=== PATIENT | female | born 1970 | race Caucasian/White ===

== ENCOUNTER 2021-09-02 07:33 | Outpatient (REF) | payer OTHER, SELFPAY ==
[2021-09-02 07:52] LABS: MANUAL DIFF FLAG NO
[2021-09-02 09:37] LABS: Basophils Percent Auto 0.5 % (0-2); Eosinophils Absolute Auto 0.1 X10*3/uL (0.0-0.4); Eosinophils Percent Auto 1.6 % (0-4); Hematocrit 39.2 % (37.0-47.0); Hemoglobin 12.9 g/dl (12.0-16.0); Imm Gran Abs Auto 0.01 X10*3/uL (0.00-0.03); Imm Gran Pct Auto 0.2 % (0.0-0.4); Lymphocytes Absolute Auto 1.5 X10*3/uL (1.2-4.9); Lymphocytes Percent Auto 34.7 % (20-40); Mean Corpuscular HGB Conc 32.9 g/dl (31.0-35.0); Mean Corpuscular Hemoglobin 30.1 pg (27.0-33.0); Mean Corpuscular Volume 91.6 fL (80.0-98.0); Mean Platelet Volume 11.1 fL (9.4-12.3); Monocytes Absolute Auto 0.4 X10*3/uL (0.1-1.2); Monocytes Percent Auto 10.3 % (2-11); Neutrophils Absolute Auto 2.2 x10*3/uL (2.0-8.3); Neutrophils Percent Auto 52.7 % (45-73); Platelet Count 249 X10*3/uL (160-400); Red Blood Count 4.28 X10*6/uL (4.20-5.50); Red Cell Distribution Width 12.5 % (11.0-16.0); White Blood Count 4.3 X10*3/uL (4.8-10.8)
[2021-09-02 10:08] LABS: Alanine Aminotransferase 27 U/L (0-31); Albumin Level 4.1 g/dL (3.5-5.0); Alkaline Phosphatase 107 U/L (39-117); Anion Gap 11 (12-20); Aspartate Amino Transferase 22 U/L (5-31); Bilirubin Total 0.4 mg/dL (0.0-1.0); Blood Urea Nitrogen 13 mg/dL (9-16); Calcium 8.9 mg/dL (8.4-10.2); Carbon Dioxide 29 mmol/L (22-29); Chloride 106 mmol/L (96-108); Cholesterol 189 mg/dL; Estimated Glomerular Filt Rate > 60; Glucose Fasting 96 mg/dL (60-99); HDL Cholesterol 48 mg/dL; LDL Cholesterol Calculated 129 mg/dl; Potassium 4.3 mmol/L (3.3-5.1); Sodium 142 mmol/L (135-145); Total Protein 7.3 g/dL (6.5-8.0); Triglycerides 62 mg/dL
[2021-09-02 10:13] LABS: TSH reflex Free T4 1.22 uIU/mL (0.32-4.0); Vitamin D 25-OH Total 41.1 ng/mL (>30)
[2021-09-02 11:17] LABS: Appearance Urine CLEAR; Color Urine YELLOW; Glucose Urine UA NEG (NEG); Leukocyte Esterase Urine NEG (NEG); Nitrite Urine NEG (NEG); Urine Blood NEG (NEG); Urine Ketones NEG (NEG); Urine Protein NEG (NEG-TRACE)
== END 2021-09-02 07:34 | disposition home or self-care (01) ==
LOC: HO.LAB 07:33
PROVIDERS: PCP Internal Medicine; Visit Provider Internal Medicine
DX: Z00.00 Encounter for general adult medical examination without abnormal findings (principal); E78.00 Pure hypercholesterolemia, unspecified; E55.9 Vitamin D deficiency, unspecified; I10 Essential (primary) hypertension
CPT/HCPCS: 80053; 80061; 81003; 82306; 84443; 85025; U0003; U0005

== ENCOUNTER → 2021-12-12 10:32 | Outpatient (BNVA) | payer OTHER, SELFPAY | PROVIDERS: PCP Internal Medicine; Referring Provider Internal Medicine; Visit Provider Nurse Practitioner Family | DX: Z12.11 Encounter for screening for malignant neoplasm of colon (principal) | CPT/HCPCS: 99212 ==

== ENCOUNTER 2022-01-29 09:47 | Day surgery (SDC) | payer OTHER, SELFPAY ==
[2022-01-24 09:16] VITALS: BMI 28.3
--- NOTE | 2022-01-26 09:37 | HO.ANESPROP2 ---
Documented by User: Manuela Vega NP 01/26/22 09:38 HPI - Anesthesia Eval Consult details Narrative: 51yo F for Colonoscopy PMFSH Active Problems Active Problems: All Active Problems (Updated 09/01/21 @ 19:14 by Moises Peralta MD) Loss of sense of smell (Acute) Colon cancer screening (Acute) Overweight (BMI 25.0-29.9) (Acute) Constipation (Acute) Elevated LFTs (Acute) Vitamin D deficiency (Acute) Benign essential hypertension (Acute) Annual physical exam (Acute) Past Medical History Medical History Benign essential hypertension Constipation Elevated LFTs Mucous cyst of tonsil Overweight (BMI 25.0-29.9) Vitamin D deficiency Family History Family History Father Heart disease Mother Diabetes Maternal Aunt Breast cancer Other Mental health problem Substance abuse Surgical History Surgical History No pertinent past surgical history Social History Social History Housing: House Alcohol intake: never Patient Tobacco Use Status: Never used Tobacco Second Hand Smoke Exposure: Yes Are you DNR?: No Advance Directives: No Advance Directives Information Provided: Yes service: No Current occupational status: employed Meds Allergies Allergy/AdvReac Type Severity Reaction Status Date / Time aspirin [ASPIRIN] Allergy Severe VOMITING, Verified 12/12/21 10:42 hives ibuprofen [From MOTRIN] Allergy Unknown UNKNOWN, Verified 12/12/21 10:42 hives Home Medications Medication Instructions Recorded Confirmed Last Taken Type ascorbate calcium (vitamin C) 500 1 g PO Q6H 12/12/21 Unknown History mg tablet collagen (bovine) 100 % topical 1 appl TOPICAL DAILY 12/12/21 Unknown History powder vitamin B complex (B 1 tab PO DAILY 12/12/21 Unknown History Complex-Vitamin B12) Exam Exam Date and Time: January 26, 2022 0937 Height,Weight and Vital Signs: Height 5 ft 2 in Weight 70.307 kg Pertinent Lab Results Pertinent Lab Results: Laboratory Tests 09/02/21 09/02/21 07:51 07:51 WBC 4.3 L Hgb 12.9 Hct 39.2 Plt Count 249 Sodium 142 Potassium 4.3 Chloride 106 Carbon Dioxide 29 BUN 13 Creatinine 0.90 Assessment and Plan Assessment Anesthesia Assessment: Chart Reviewed Documented by User: Connie Tilley MD 01/29/22 10:47 PMFSH Past Medical History Medical History Benign essential hypertension Constipation Elevated LFTs Mucous cyst of tonsil Overweight (BMI 25.0-29.9) Vitamin D deficiency Family History Family History Father Heart disease Mother Diabetes Maternal Aunt Breast cancer Other Mental health problem Substance abuse Family history of problems with anesthesia: No Surgical History Surgical History No pertinent past surgical history History of Problems with Anesthesia: No Social History Social History Housing: House Alcohol intake: never Patient Tobacco Use Status: Never used Tobacco Second Hand Smoke Exposure: Yes Are you DNR?: No Advance Directives: No Advance Directives Information Provided: Yes service: No Current occupational status: employed Meds Allergies Allergy/AdvReac Type Severity Reaction Status Date / Time aspirin [ASPIRIN] Allergy Severe VOMITING, Verified 12/12/21 10:42 hives ibuprofen [From MOTRIN] Allergy Unknown UNKNOWN, Verified 12/12/21 10:42 hives Home Medications Medication Instructions Recorded Confirmed Last Taken Type ascorbate calcium (vitamin C) 500 1 g PO Q6H 12/12/21 Unknown History mg tablet collagen (bovine) 100 % topical 1 appl TOPICAL DAILY 12/12/21 Unknown History powder vitamin B complex (B 1 tab PO DAILY 12/12/21 Unknown History Complex-Vitamin B12) Exam Airway Mallampati Class: II TM Dist: >3cm Neck ROM: Full Heart: rrr Lungs: cta Assessment and Plan Assessment Anesthesia Assessment: Anesthesia Plan Discussed and Chart Reviewed Final Anesthetic Review Family History of Problems with Anesthesia: No History of Problems with Anesthesia: No NPO: Yes ASA Class: II Final Preanesthetic Review: No Changes in Pt Med Stat, Meds/Allgs Chart Reviewed and Consent Obtained/Reviewed Patient Risk: Intermediate Procedure Risk: Intermediate Anesthetic Plan Anesthetic Plan: MAC: Disposition: Standard PACU
[2022-01-29 10:19] VITALS: BMI 28.3
[2022-01-29 10:36] VITALS: BP 161/84; PULSE 60; RESP 18; TEMP 36.4; O2SAT 98
[2022-01-29] MEDS: Lactated Ringers 1,000 ML 100 ML IVCONT (10:45)
--- NOTE | 2022-01-29 10:45 | MHC.SHP ---
Pre-Procedural Eval Section A Date of Service: 01/29/22 The patient is an INPATIENT: No The History & Physical has been completed within 30 days and I have reviewed it.: No Section B Chief Complaint: screening Details of Present Illness: Colon cancer screening Relevant Family History (Specify if Yes): No Relevant Social History: None Present Medications: see Short Stay Collaborative assessment Medical History: Significant History (Benign essential hypertension Constipation Elevated LFTs Mucous cyst of tonsil Overweight (BMI 25.0-29.9) Vitamin D deficiency) History of Previous Operations: No relevant previous surgery Allergies: Allergies Allergy/AdvReac Type Severity Reaction Status Date / Time aspirin [ASPIRIN] Allergy Severe VOMITING, Verified 12/12/21 10:42 hives ibuprofen [From MOTRIN] Allergy Unknown UNKNOWN, Verified 12/12/21 10:42 hives Review of Systems Sugical H&P ROS: Negative: Constitution, Cardiovascular, Respiratory and Gastrointestinal Exam Surgical H&P Exam: Normal: Heart, Normal: Lungs, Normal: Extremities and Normal: Abdomen Plan Diagnosis/Plan: Unchanged I have reviewed the history and physical and performed a pertinent physical examination on my patient. No changes have occurred unless specified.
--- NOTE | 2022-01-29 10:46 | P.OP_ITS ---
Operative Note Operative Note Date of Service: 01/29/22 Narrative: Pre-op diagnosis: Colon cancer screening Post-op diagnosis:?other (Colon polyp, diverticulosis) Procedure: COLONOSCOPY TILL CECUM WITH SNARE POLYPECTOMY Consent: Indications for the procedure and potential complications of bleeding, perforation, reaction to medications and missed diagnosis were discussed with the patient and informed consent was obtained. Instrument: Olympus PCF H 190 L variable stiffness pediatric colonoscope Monitoring: Vital signs and clinical assessment, intermittent blood pressure monitoring, continuous EKG monitoring, Pulse oximetry and Carbon Dioxide monitoring were done throughout the procedure. Colon withdrawl time was 17 minutes. Procedure: The patient was placed in the left lateral decubitis position and pre-procedure medications were administered. After a digital rectal examination of the ano-rectum, the video colonoscope was inserted into the rectum and advanced through the colon to the cecum. The colonoscope was slowly withdrawn in a retrograde panoramic fashion and the colon mucosa was carefully examined including a retroflexed view of the rectum. Findings and interventions are described below. Procedure Difficulty: Without difficulty Findings: Terminal Ileum: Not evaluated Cecum:? Normal Ascending Colon:? Normal Transverse Colon:? Normal Descending Colon:? Moderate diverticulosis Sigmoid Colon:? A 7-8 mm sessile polyp removed with a cold snare. Moderate diverticulosis Rectum:? Normal Ano-rectum:? Normal Colon preparation:? Good after some irrigation Impression and Post Procedure Diagnosis: Colonoscopy Findings: One small polyp removed Moderate diverticulosis seen in the left colon Plan: Await pathology results Patient has an appointment on 02/13/22 in the GI Clinic with Ana Hunter FNP- [facility] . Repeat Colonoscopy interval based on path results - in 5 years if polyps are adenomatous and 10 years if polyps are hyperplastic. Above findings were reviewed with the patient and colon polyps and diverti culosis handouts were given in the discharge area Surgeon: Heron Nam MD Anesthesia:?MAC (Dr Cruz) Was an Desizing Pad Operator used for this Procedure?:?Yes Desizing Pad Operator:?Komal Ortiz Estimated blood loss (mL):?0 Pathology:?other (A. sigmoid polyp) Condition:?stable Disposition:?PACU
[2022-01-29 11:26] VITALS: BP 108/69; PULSE 68; RESP 16; TEMP 36.2; O2SAT 98
[2022-01-29 11:41] VITALS: BP 144/89; PULSE 62; RESP 16; TEMP 36.2; O2SAT 99
== END 2022-01-29 12:13 | disposition home or self-care (01) ==
PROVIDERS: PCP Internal Medicine; Visit Provider Internal Medicine Gastroenterology
PROC: 0DJD8ZZ Inspection of Lower Intestinal Tract, Via Natural or Artificial Opening Endoscopic (ICD-10-PCS; CPT 45378; principal; 2022-01-29 10:50)
DX: Z12.11 Encounter for screening for malignant neoplasm of colon (principal); D12.5 Benign neoplasm of sigmoid colon; K57.30 Diverticulosis of large intestine without perforation or abscess without bleeding; K59.00 Constipation, unspecified; I10 Essential (primary) hypertension; E55.9 Vitamin D deficiency, unspecified; E66.3 Overweight; Z68.28 Body mass index [BMI] 28.0-28.9, adult; R79.89 Other specified abnormal findings of blood chemistry; Z88.8 Allergy status to other drugs, medicaments and biological substances; Z79.899 Other long term (current) drug therapy
CPT/HCPCS: 45385; 88305

== ENCOUNTER 2022-01-31 14:08 | Outpatient (REF) | payer OTHER, SELFPAY ==
--- NOTE | ~2022-01-31 | XR_ITS ---
EXAMINATION: XR SACROILIAC JOINTS CLINICAL INFORMATION: Numbness right SI joint for a month. COMPARISON: CT abdomen and pelvis of 11/13/2019. TECHNIQUE: 3 views of the sacroiliac joints. FINDINGS: There is no evidence of acute fracture or dislocation of visualized bones. Changes of enthesopathy present about the iliac crests. The sacroiliac joints appear essentially normal without evidence of fusion or widening. There is sacralization of L5. XR/XR sacroiliac joint min 3V IMPRESSION: Sacralization of L5. No significant sacroiliac joint abnormality appreciated.
[2022-01-31 14:28] LABS: MANUAL DIFF FLAG NO
[2022-01-31 14:52] LABS: Basophils Percent Auto 0.9 % (0-2); Eosinophils Absolute Auto 0.1 X10*3/uL (0.0-0.4); Eosinophils Percent Auto 1.1 % (0-4); Hematocrit 39.7 % (37.0-47.0); Hemoglobin 12.9 g/dl (12.0-16.0); Imm Gran Abs Auto 0.02 X10*3/uL (0.00-0.03); Imm Gran Pct Auto 0.5 % (0.0-0.4); Lymphocytes Absolute Auto 1.2 X10*3/uL (1.2-4.9); Lymphocytes Percent Auto 27.9 % (20-40); Mean Corpuscular HGB Conc 32.5 g/dl (31.0-35.0); Mean Corpuscular Volume 92.3 fL (80.0-98.0); Mean Platelet Volume 10.8 fL (9.4-12.3); Monocytes Absolute Auto 0.4 X10*3/uL (0.1-1.2); Monocytes Percent Auto 8.9 % (2-11); Neutrophils Absolute Auto 2.7 x10*3/uL (2.0-8.3); Neutrophils Percent Auto 60.7 % (45-73); Platelet Count 240 X10*3/uL (160-400); Red Cell Distribution Width 12.4 % (11.0-16.0); White Blood Count 4.4 X10*3/uL (4.8-10.8)
[2022-01-31 15:18] LABS: Alanine Aminotransferase 30 U/L (0-31); Albumin Level 4.4 g/dL (3.5-5.0); Alkaline Phosphatase 94 U/L (39-117); Anion Gap 12 (12-20); Aspartate Amino Transferase 27 U/L (5-31); Bilirubin Total 0.4 mg/dL (0.0-1.0); Blood Urea Nitrogen 12 mg/dL (9-16); C Reactive Protein 0.28 mg/dL (< or = 0.50); Calcium 9.7 mg/dL (8.4-10.2); Carbon Dioxide 29 mmol/L (22-29); Chloride 105 mmol/L (96-108); Estimated Glomerular Filt Rate 57; Glucose Random 101 mg/dL (60-115); Potassium 4.9 mmol/L (3.3-5.1); Sodium 141 mmol/L (135-145); Total Protein 7.6 g/dL (6.5-8.0)
[2022-01-31 15:31] LABS: Erythrocyte Sedimentation Rate 19 MM/HR (0-20)
[2022-01-31 15:40] LABS: TSH reflex Free T4 1.22 uIU/mL (0.32-4.0)
[2022-01-31 15:50] LABS: Folate > 20.0 ng/mL (> or = 4.0); Vitamin B12 1785 pg/mL (200-900)
[2022-02-02 21:11] LABS: Lyme Abs Screen <0.90 index
== END 2022-01-31 14:09 | disposition home or self-care (01) ==
LOC: HO.XRAY 14:08
PROVIDERS: PCP Internal Medicine; Visit Provider Internal Medicine
DX: S16.1XXA Strain of muscle, fascia and tendon at neck level, initial encounter (principal); X58.XXXA Exposure to other specified factors, initial encounter; Y93.9 Activity, unspecified; Y92.9 Unspecified place or not applicable; Y99.8 Other external cause status; G89.29 Other chronic pain; M53.3 Sacrococcygeal disorders, not elsewhere classified; R20.2 Paresthesia of skin
CPT/HCPCS: 36415; 72202; 80053; 82607; 82746; 84443; 85025; 85652; 86140; 86617; 86618

== ENCOUNTER 2023-02-23 08:47 | Outpatient (REF) | payer OTHER, SELFPAY ==
[2023-02-23 09:04] LABS: MANUAL DIFF FLAG NO
[2023-02-23 09:17] LABS: Basophils Percent Auto 0.9 % (0-2); Eosinophils Absolute Auto 0.2 X10*3/uL (0.0-0.4); Eosinophils Percent Auto 4.2 % (0-4); Hematocrit 40.1 % (37.0-47.0); Imm Gran Abs Auto 0.01 X10*3/uL (0.00-0.03); Imm Gran Pct Auto 0.2 % (0.0-0.4); Lymphocytes Absolute Auto 1.3 X10*3/uL (1.2-4.9); Lymphocytes Percent Auto 30.9 % (20-40); Mean Corpuscular HGB Conc 32.4 g/dl (31.0-35.0); Mean Corpuscular Hemoglobin 29.9 pg (27.0-33.0); Mean Corpuscular Volume 92.2 fL (80.0-98.0); Mean Platelet Volume 10.7 fL (9.4-12.3); Monocytes Absolute Auto 0.4 X10*3/uL (0.1-1.2); Monocytes Percent Auto 8.5 % (2-11); Neutrophils Absolute Auto 2.4 x10*3/uL (2.0-8.3); Neutrophils Percent Auto 55.3 % (45-73); Platelet Count 233 X10*3/uL (160-400); Red Blood Count 4.35 X10*6/uL (4.20-5.50); Red Cell Distribution Width 12.4 % (11.0-16.0); White Blood Count 4.3 X10*3/uL (4.8-10.8)
[2023-02-23 09:48] LABS: Alanine Aminotransferase 68 U/L (0-31); Albumin Level 4.3 g/dL (3.5-5.0); Alkaline Phosphatase 100 U/L (39-117); Anion Gap 13 (12-20); Aspartate Amino Transferase 34 U/L (5-31); Bilirubin Total 0.5 mg/dL (0.0-1.0); Blood Urea Nitrogen 9 mg/dL (9-16); Calcium 9.6 mg/dL (8.4-10.2); Carbon Dioxide 28 mmol/L (22-29); Chloride 107 mmol/L (96-108); Cholesterol 262 mg/dL; Estimated Glomerular Filt Rate > 60; Glucose Fasting 99 mg/dL (60-99); HDL Cholesterol 67 mg/dL; LDL Cholesterol Calculated 177 mg/dl; Potassium 4.5 mmol/L (3.3-5.1); Sodium 143 mmol/L (135-145); Total Protein 7.5 g/dL (6.5-8.0); Triglycerides 92 mg/dL
[2023-02-23 10:09] LABS: TSH reflex Free T4 1.44 uIU/mL (0.32-4.0); Vitamin D 25-OH Total 41.4 ng/mL (>30)
[2023-02-23 10:14] LABS: Appearance Urine Clear; Color Urine Yellow; Glucose Urine UA Negative (Negative); Leukocyte Esterase Urine Negative (Negative); Nitrite Urine Negative (Negative); Specific Gravity - Urine <= 1.005 (1.005-1.025); Urine Blood Negative (Negative); Urine Ketones Negative (Negative); Urine Protein Negative (Neg-Trace)
== END 2023-02-23 08:48 | disposition home or self-care (01) ==
LOC: HO.LAB 08:47
PROVIDERS: PCP Internal Medicine; Visit Provider Internal Medicine
DX: Z00.00 Encounter for general adult medical examination without abnormal findings (principal); E78.00 Pure hypercholesterolemia, unspecified; R79.89 Other specified abnormal findings of blood chemistry; E55.9 Vitamin D deficiency, unspecified; R30.0 Dysuria
CPT/HCPCS: 36415; 80053; 80061; 81003; 82306; 84443; 85025

== ENCOUNTER 2023-05-01 10:00 | Outpatient (RCR) | payer OTHER, SELFPAY ==
--- NOTE | 2023-04-01 16:23 | MHC.PT.EP ---
[facility] [place] Office [place] [facility] [place] Office [address] [phone] F: [phone] F: [phone] F: [phone] F: [phone] Physical Therapy Plan of Care Date of Evaluation: Date of Surgery: NA Diagnosis: Sacrococcygeal disorders, not elsewhere classified, other chronic pain, chronic R sacroiliac joint pain Assessment: Melissa is a 52 yo female referred to PT for Sacrococcygeal disorders, not elsewhere classified, other chronic pain, chronic R sacroiliac joint pain Impairments include pain with thoracic rotation, TTP at R ASIS and R SI joint, R posterior innominate, mild gait deviations, decreased TrA strength, and increased lumbar mobility leading to pain. Functional limitations include some difficulty with lifting heavy objects such as water and full laundry basket. Skilled PT to address aforementioned impairments and functional limitations. PT to include postural education, METs for innominate, gait training, HEP, and core strengthening. Frequency and Duration: The patient will be seen 2x per week for 4 weeks Short Term Goals: In 2 weeks... 1. Pt will become I with all HEP 2. Pt will demonstrate improved pelvic symmetry which would enable her to carry laundry without pain. Long-Term Goals: In 4 weeks... 1. Pt will increase TrA strength by 1 MMT in order to stabilize lumbar spine so as to be able to do work activities and lifting without pain. 2. Pt will be independent with HEP for symptom management and maintenance following d/c. Treatment Plan: Modalities to reduce pain, spasms and effusion. Manual therapy to restore motion and function. Therapeutic exercise to improve strength and flexibility. Neuromuscular re-education for posture and balance. Therapeutic activities to return to functional activities of daily living. Electronically signed by: Leyla Dumont PT DPT Please sign and return to therapist. Thank you for your referral.
--- NOTE | 2023-05-17 13:57 | MHC.PT.DC ---
[facility] [place] [facility] [place] [facility] [place] Office [address] [phone] F: [phone] F: [phone] F: [phone] F: [phone] Physical Therapy Discharge Report Diagnosis: Sacrococcygeal disorders, not elsewhere classified, other chronic pain, chronic R sacroiliac joint pain Date of Surgery: NA Date of Evaluation: 04/01/23 Date of Discharge: 05/17/23 Treatments to Date: 5 Cancellations to Date: No Shows to Date: Discharge Status: Achieved Goals Improved Function Independent with HEP Discharge Summary: Melissa completed 5 PT visits. She has made improvements with PT and is independent with HEP. She is therefore being d/c from PT. Electronically signed by: Leyla Dumont, PT DPT Please sign and return to therapist. Thank you for your referral.
== END 2023-05-17 13:57 | disposition home or self-care (01) ==
LOC: HO.PT 10:00
PROVIDERS: PCP Internal Medicine; Visit Provider Internal Medicine
DX: G89.29 Other chronic pain (principal); M53.3 Sacrococcygeal disorders, not elsewhere classified
CPT/HCPCS: 97110; 97112; 97140; 97161; 97530

== ENCOUNTER 2023-05-27 10:24 | Outpatient (AMB) | payer OTHER, SELFPAY ==
[2023-05-27 10:51] VITALS: BP 140/90; BMI 28.7
--- NOTE | 2023-05-27 10:51 | A.OFFVIS_ITS ---
Intake Vital Signs 05/27/23 10:51 Height 5 ft 2 in Weight 157 lb BMI 28.7 BP 140/90 H Intake Visit Reasons: New patient Annual Intake Note: Dryness Robotics Technologist Required: No Information Interpreted: non-clinical & clinical Woodworking Machine Operator: Woodworking Machine Operator Present (Emma) Allergies aspirin [ASPIRIN] Allergy (Severe, Verified 05/27/23 10:53) VOMITING, hives ibuprofen [From MOTRIN] Allergy (Unknown, Verified 05/27/23 10:53) UNKNOWN, hives Medication List - Last Reconciled 05/27/23 by Kaitlin Machado CNM ascorbate calcium (vitamin C) 1 g PO Q6H cholecalciferol (vitamin D3) 25 mcg PO DAILY 180 days collagen (bovine) 100% 1 appl topical DAILY lisinopril 2.5 mg PO DAILY 90 days vitamin B complex (B Complex-Vitamin B12 tablet) 1 tab PO DAILY Is last menstrual period known: No Post menopausal: Yes HPI New patient Annual HPI Details 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 She says she did not know about the abnormal Pap smear in 2016. She is postmenopausal and experiencing vaginal dryness and so is not intimate with her as much because it hurts. She has no worries at all about infection. 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 She knows she needs to get a mammogram and has not had 1 in a while and her primary doctor did schedule it for her but she just needs to make the appointment. [facility] Medical History (Updated 05/27/23 @ 11:37 by Kaitlin Machado CNM) Benign essential hypertension Constipation Elevated LFTs Mucous cyst of tonsil Overweight (BMI 25.0-29.9) Vitamin D deficiency Surgical History History of colonoscopy Family History Father Heart disease Mother Diabetes Maternal Aunt Breast cancer Other Mental health problem Substance abuse Social History Housing: House Alcohol intake: never Patient Tobacco Use Status: Never used Tobacco e-Cigarette/Vaping Use: Never Used Second Hand Smoke Exposure: Yes service: No Current occupational status: employed Cognitive needs: No Hearing needs: No Vision needs: No Female Reproductive History Menstrual Age of Menarche: 9 control method: none Total pregnancies: 1 Ab spontaneous: 1 Date of last pap smear: 08/31/16 (ASCUS) History of abnormal pap smear: Yes Date of Mammogram: 08/25/18 Physical Exam Vital Signs: Last Vital Signs BP 140/90 H 05/27/23 10:51 BMI result Body Mass Index 28.7 Const General: healthy appearing, comfortable, no acute distress, well developed and alert Nutritional Appearance: average body habitus Orientation/consciousness: patient oriented x3 Limitations: no limitations HEENT Head: Yes normocephalic Neck Neck: Yes normal visual inspection Chest Chest palpation & inspection: normal inspection of the chest Breast/axilla inspection: normal inspection of the breasts and normal inspection of the axillae Breast/axilla palpation: normal palpation of the breasts and normal palpation of the axillae Resp Effort & Inspection: normal respiratory effort GI Inspection: Yes normal to inspection, No Abdominal wall edema and No distended Palpation (GI): Soft to palpation and nontender 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 Small amount of bleeding noted with opening of speculum. Cervix is pink nulliparous smooth mobile nontender. General: Yes bladder normal to palpation External Female Exam: normal external appearance and normal appearance of the urethra Speculum Exam - Vagina: normal appearance of the vagina, normal palpation and normal vaginal discharge Speculum Exam - Cervix: normal appearance of the cervix, normal palpation and nontender Bimanual exam- vagina & uterus: normal bimanual exam, normal palpation, uterine size normal, bladder normal to palpation, consistency normal, normal palpation, uterine mobility normal, uterine shape normal, No Cervical tenderness present, non-tender and no cervical motion tenderness Bimanual Exam- Adnexa, other: normal adnexae, no masses, normal and No adnexal tenderness Neuro General: patient oriented x3 Assessment & Plan Assessment & Plan (1) Cervical cancer screening: Comment: History of ASCUS question 2016. Code(s): Z12.4 - Encounter for screening for malignant neoplasm of cervix (2) Breast cancer screening by mammogram: Code(s): Z12.31 - Encounter for screening mammogram for malignant neoplasm of breast (3) Benign essential hypertension: Comment: Patient is on lisinopril... Code(s): I10 - Essential (primary) hypertension (4) Postmenopausal atrophic vaginitis: Code(s): N95.2 - Postmenopausal atrophic vaginitis Plan -----Discussed in this visit the following: healthy balanced diet, regular and consistent exercise, getting recommended health screens, doing the best she can for her particular health concerns, kegel exercises, pap smear screening and followup recommendations, mammography screening and SBE, normal changes in cycles in her life stage--- . Discussed her need for mammogram. Discussed the true challenges of postmenopausal changes and vaginal atrophy and the challenges it poses discussed the possible use of [id number] water-based lubricants. Also discussed possibly consideration of a trial of vaginal estrogen but patient needs to get her mammogram 1st. Discussed her various stretches and self-care regimen which is fairly wide ranging and insightful and thorough. Patient is sure she was not told about her abnormal Pap smear research was not able to be done during this visit as to what calls were made. Pap smear will be sent today with Co testing I told her to expect a letter with results but if she does not hear within the next month she should call. She declined any need for any other STI testing. Orders: Orders Pap Smear Today Z01.419 - Encounter for gynecological examination (general) (routine) without abnormal findings Coding Level of Care Code New Pt Prev Care 40-64y(09114) Diagnoses Cervical cancer screening Z12.4 Breast cancer screening by mammogram Z12.31 Benign essential hypertension I10 Postmenopausal atrophic vaginitis N95.2
== END 2023-05-27 11:37 | disposition home or self-care (01) ==
LOC: HO.HWS 10:24
PROVIDERS: PCP Internal Medicine; Visit Provider Advanced Practice Midwife
DX: Z01.419 Encounter for gynecological examination (general) (routine) without abnormal findings (principal); Z12.31 Encounter for screening mammogram for malignant neoplasm of breast; I10 Essential (primary) hypertension; N95.2 Postmenopausal atrophic vaginitis
CPT/HCPCS: 99386

== ENCOUNTER 2023-05-27 10:24 | Outpatient (REF) | payer OTHER, SELFPAY ==
[2023-05-30 01:38] LABS: HPV mRNA E6/E7 rflx Not Detected (Not Detected)
== END 2023-05-27 10:25 | disposition home or self-care (01) ==
LOC: HO.LNP 10:24
PROVIDERS: PCP Internal Medicine; Visit Provider Advanced Practice Midwife
DX: Z01.419 Encounter for gynecological examination (general) (routine) without abnormal findings (principal); Z11.51 Encounter for screening for human papillomavirus (HPV); N95.2 Postmenopausal atrophic vaginitis
CPT/HCPCS: 87624; 88142

== ENCOUNTER 2023-08-26 12:58 | Outpatient (AMB) | payer OTHER, SELFPAY ==
[2023-08-26 13:01] VITALS: BP 120/82; PULSE 90; O2SAT 97; BMI 28.9
--- NOTE | 2023-08-26 13:01 | A.OFFPC_ITS ---
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 Accompanied by: Self / Same As Patient Allergies aspirin [ASPIRIN] Allergy (Severe, Verified 08/26/23 13:32) VOMITING, hives ibuprofen [From MOTRIN] Allergy (Unknown, Verified 08/26/23 13:32) UNKNOWN, hives Medication List - Last Reconciled 08/26/23 by Moises Peralta MD ascorbate calcium (vitamin C) 1 g PO Q6H cholecalciferol (vitamin D3) 25 mcg PO DAILY 180 days collagen (bovine) 100% 1 appl topical DAILY lisinopril 2.5 mg PO DAILY 90 days omega-3 fatty acids 500 mg PO DAILY vitamin B complex (B Complex-Vitamin B12 tablet) 1 tab PO DAILY Tobacco use date assessed: 08/26/23 Dental Screening Dental Screen Date: 08/26/23 Did you have a dental visit in the last 12 months?: Yes Did you have a dental problem in the last 6 months where you did not have access to dental care?: No Was dental information given to patient?: Patient has dentist HPI hyperlipidemia, elevated LFTs, right SI joint pain HPI Details Patient comes in today for her follow up visit States that she feels okay She denies any headaches or dizziness Denies any chest pains, no SOB No nausea/vomiting, no abdominal pain No change in bowel habits noted Would like to go over in details the results of her labs done a few months ago after her last visit [facility] Medical History (Updated 08/26/23 @ 14:10 by Moises Peralta MD) Pure hypercholesterolemia Mucous cyst of tonsil Overweight (BMI 25.0-29.9) Constipation Elevated LFTs Vitamin D deficiency Benign essential hypertension Surgical History History of colonoscopy Family History Father Heart disease Mother Diabetes Maternal Aunt Breast cancer Other Mental health problem Substance abuse Housing: House Alcohol intake: never Patient Tobacco Use Status: Never used Tobacco e-Cigarette/Vaping Use: Never Used Second Hand Smoke Exposure: Yes service: No Current occupational status: employed Cognitive needs: No Hearing needs: No Vision needs: No Female Reproductive History Menstrual Age of Menarche: 9 Questionnaire PHQ-9 Over the last 2 weeks, how often have you been bothered by any of the following problems? 1. Little interest or pleasure in doing things: not at all 2. Feeling down, depressed, or hopeless: not at all 3. Trouble falling or staying asleep, or sleeping too much: not at all 4. Feeling tired or having little energy: not at all 5. Poor appetite or overeating: not at all 6. Feeling bad about yourself - or that you are a failure or have let yourself or your family down: not at all 7. Trouble concentrating on things, such as reading the newspaper or watching television: not at all 8. Moving or speaking so slowly that other people could have noticed. Or the opposite - being so fidgety or restless that you have been moving around a lot more than usual: not at all 9. Thoughts that you would be better off or of hurting yourself in some way: not at all Total score: 0 Depression Screening Interpretation: Negative Depression Screening Done: Yes 52076 - PHQ-9 Billing: Yes Source: Developed by Drs. Joe Trotter, Lita Diallo, Eliceo Wu and colleagues, with an educational brenda from [employer]. Thrive Questionnaire Date Thrive assessed: 08/26/23 I am a: Patient What is your living situation today?: I have a steady place to live Within the past 12 months, did the food you bought not last and you didn't have the money to get more?: Never true Within the past 12 months, did you worry whether your food would run out before you got money to buy more?: Never true Do you have trouble paying for medicines?: No Do you have trouble getting transportation to medical appointments?: No Do you have trouble paying your heating and electricity bill?: No Do you have trouble taking care of your child, family member or friend?: No Do you have trouble with day-to-day activities such as bathing, preparing meals, shopping, managing finances, etc.?: No Are you currently unemployed and looking for a job?: No Are you interested in more education?: No Please select the resources that you would like help with: None Currently or been in a relationship where the following occur: no concerns reported AUDIT C Alcohol Use Questionnaire (AUDIT-C) 1. How often do you have a drink containing alcohol?: Never 3. How often do you have six or more drinks on one occasion?: Never Total Score: 0 Score Reviewed/Action Taken: Yes YONIS-7 AMB Questionnaire YONIS-7 Date YONIS - 7 assessed: 08/26/23 Feeling nervous, anxious, or on edge: 1 = Several days Not being able to stop or control worryin = Several days Worrying too much about different things: 1 = Several days Trouble relaxin = Several days Being so restless that it is hard to sit still: 1 = Several days Becoming easily annoyed or irritable: 1 = Several days Feeling afraid as if something awful might happen: 1 = Several days Total YONIS-7 score (0-4 normal; 5-9 mild; 10-14 moderate; 15-21 severe): 7 Source: Developed by Drs. Joe Trotter, Lita Diallo, Eliceo Wu and colleagues, with an educational brenda from [employer]. Review of Systems Const Denies chills, Denies fatigue, Denies fever(s) and Denies headache(s) ENT Denies dysphagia, Denies dizziness, Denies otalgia, Denies headache(s), Denies neck pain, Denies odynophagia and Denies sore throat Card Denies chest pain, Denies rapid heart rate, Denies irregular heart rhythm, D enies palpitations and Denies dyspnea Resp Denies chest congestion, Denies cough and Denies dyspnea GI Denies abdominal pain, Denies constipation, Denies dysphagia, Denies heartburn, Denies diarrhea, Denies nausea, Denies odynophagia and Denies vomiting Denies hematuria, Denies urinary frequency, Denies dysuria and Denies urinary urgency Musc Reports back pain (on and off over the lower back (bilateral SI joint), more on the R side), Denies arthralgias and Denies neck pain Skin/Breast Denies rash Neuro Denies dizziness, Denies headache(s) and Denies paresthesias Psych Denies anxiety and Denies depression Endo Denies fatigue and Denies palpitations Kyle/Lymph Denies easy bruising Physical exam (Primary Care) Vital Signs: Last Vital Signs Pulse 90 08/26/23 13:01 BP 120/82 08/26/23 13:01 Pulse Ox 97 08/26/23 13:01 Oxygen Delivery Method Room Air 08/26/23 13:01 BMI result Body Mass Index 28.9 Tobacco/Smoking Status: Tobacco use Status Tobacco use date assessed 08/26/23 08/26/23 13:10 Patient Tobacco Use Status Never used Tobacco 08/26/23 13:10 e-Cigarette/Vaping Use Never Used 08/26/23 13:10 PHQ-9: PHQ-9 Score PHQ-9: Total score 0 08/26/23 13:10 Depression Screening Interpretation: Negative Thrive Assessment: Date of Thrive Assessment Date Thrive assessed 08/26/23 08/26/23 13:10 Currently or been in a relationship where the following occur: no concerns reported Const General: no acute distress and alert HENMT Ears: TM's normal bilaterally and EAC's normal Throat: Yes posterior oropharynx normal and Yes tonsils normal (no TP congestion) Neck Neck: Yes no lymphadenopathy and Yes supple Thyroid: Thyroid normal Resp Auscultation: clear to auscultation bilaterally, no rales and no wheezes Cardio Rate: regular rate Rhythm: regular rhythm Heart sounds: no murmurs GI Palpation (GI): Soft to palpation and nontender Auscultation: normal bowel sounds General: Yes no CVA tenderness Back/Spine/Pelvis Back: no CVA tenderness Thoracic/Lumbar Spine: thoracic and lumbar spine normal to inspection Sacroiliac joints: bilaterally tender to palpation Skin Rashes: no rashes Extrem General: Yes no clubbing, cyanosis or edema Results Reviewed Results Reviewed: Laboratory Tests 09/02/21 02/23/23 02/23/23 07:51 08:52 08:52 WBC Hgb Hct Plt Count Sodium Potassium Creatinine Estimated GFR Fasting Glucose Calcium AST ALT Triglycerides Cholesterol 189 LDL Cholesterol, Calc 129 HDL Cholesterol 25-OH Vitamin D Total TSH Ur Specific [place] <= 1.005 Urine Protein Negative Urine Glucose (UA) Negative Urine Blood Negative 02/23/23 02/23/23 02/23/23 09:03 09:03 09:03 WBC 4.3 L Hgb 13.0 Hct 40.1 Plt Count 233 Sodium 143 Potassium 4.5 Creatinine 0.95 Estimated GFR > 60 Fasting Glucose 99 Calcium 9.6 AST 34 H ALT 68 H Triglycerides 92 Cholesterol 262 LDL Cholesterol, Calc 177 HDL Cholesterol 67 25-OH Vitamin D Total 41.4 TSH 1.44 Ur Specific [place] Urine Protein Urine Glucose (UA) Urine Blood Assessment and Plan Assessment & Plan (1) Pure hypercholesterolemia: Code(s): E78.00 - Pure hypercholesterolemia, unspecified Plan: Results of her labs done back in January 2023 reviewed and discussed with patient - cautioned that her cholesterol levels, especially her total and LDL cholesterol, have increased again significantly from previous Advised that her HDL cholesterol has also gone up significantly, which is beneficial to her Reinforced low cholesterol diet Patient agreed to try taking Rx to help lower her cholesterol levels at this time as she admits that staying on a low cholesterol diet consistently is a constant struggle for her Will start her on Atorvastatin 10 mg QD She is instructed to call at any time if she starts experiencing any significant side effects from the medication, more commonly muscle pains and abdominal pain Will have her recheck her labs and fasting lipids in 4 months for follow up (2) Elevated LFTs: Code(s): R79.89 - Other specified abnormal findings of blood chemistry Plan: She is cautioned that her LFTs are again increasing on her recent labs - are most likely related to her weight and cholesterol levels and advised that this should improve with weight loss and exercise and better control of her cholesterol numbers Abdominal US done in the past, most recently in 2018, revealed (+) fatty infiltration of the liver Will recheck her LFTs in 3 to 4 months for follow up (3) Benign essential hypertension: Comment: Patient is on lisinopril... Code(s): I10 - Essential (primary) hypertension Plan: Reinforced low sodium diet - goal is systolic BP of at least 130 mm or less Continue Lisinopril 2.5 mg QD (4) Chronic right sacroiliac joint pain: Code(s): M53.3 - Sacrococcygeal disorders, not elsewhere classified; G89.29 - Other chronic pain Plan: X-rays of the SI joint done in January 2022 came out normal She was not able to go to physical therapy when referred last year as she was out of town for a while attending to some family issues Per request, she was referred to PT at [facility] a few months ago - states that she was instructed on some exercises that she has been doing regularly and her right low back pain has improved significantly lately (5) Vitamin D deficiency: Code(s): E55.9 - Vitamin D deficiency, unspecified Plan: Continue Vitamin D3 1000 units QD (6) Constipation: Code(s): K59.00 - Constipation, unspecified Qualifiers: Constipation type: unspecified constipation type Qualified Code(s): K59.00 - Constipation, unspecified Plan: Encouraged increased oral fluids and dietary fiber Bowel movements have improved a lot in the past with OTC fiber supplements (7) Overweight (BMI 25.0-29.9): Code(s): E66.3 - Overweight Plan: Reinforced diet/exercise as tolerated/lose weight Plan Follow up in 4 months Orders: Orders Complete Blood Count Auto Diff 4 Months I10 - Essential (primary) hypertension Lipid Panel 4 Months E78.00 - Pure hypercholesterolemia, unspecified Comprehensive [place]. Panel Fast 4 Months E78.00 - Pure hypercholesterolemia, unspecified Medications: New atorvastatin 10 mg PO BEDTIME 90 days 90 tabs 1RF Coding Level of Care Code Est Pt Level 4 (70279) Diagnoses Pure hypercholesterolemia E78.00 Elevated LFTs R79.89 Benign essential hypertension I10 Chronic right sacroiliac joint pain M53.3; G89.29 Vitamin D deficiency E55.9 Constipation, unspecified constipation type K59.00 Constipation type: unspecified constipation type Overweight (BMI 25.0-29.9) E66.3
== END 2023-08-26 14:05 | disposition home or self-care (01) ==
PROVIDERS: Visit Provider Internal Medicine
DX: E78.00 Pure hypercholesterolemia, unspecified (principal); R79.89 Other specified abnormal findings of blood chemistry; I10 Essential (primary) hypertension; M53.3 Sacrococcygeal disorders, not elsewhere classified; G89.29 Other chronic pain; E55.9 Vitamin D deficiency, unspecified; K59.00 Constipation, unspecified; E66.3 Overweight
CPT/HCPCS: 99214

== ENCOUNTER 2024-02-10 09:00 | Outpatient (REF) | payer OTHER, SELFPAY ==
[2024-02-10 09:17] LABS: MANUAL DIFF FLAG NO
[2024-02-10 09:51] LABS: Basophils Absolute Auto 0.1 X10*3/uL (0.0-0.2); Basophils Percent Auto 1.1 % (0-2); Eosinophils Absolute Auto 0.1 X10*3/uL (0.0-0.4); Hematocrit 39.9 % (37.0-47.0); Hemoglobin 13.4 g/dl (12.0-16.0); Imm Gran Abs Auto 0.03 X10*3/uL (0.00-0.03); Imm Gran Pct Auto 0.7 % (0.0-0.4); Lymphocytes Absolute Auto 1.4 X10*3/uL (1.2-4.9); Lymphocytes Percent Auto 30.7 % (20-40); Mean Corpuscular HGB Conc 33.6 g/dl (31.0-35.0); Mean Corpuscular Hemoglobin 30.6 pg (27.0-33.0); Mean Corpuscular Volume 91.1 fL (80.0-98.0); Mean Platelet Volume 10.5 fL (9.4-12.3); Monocytes Absolute Auto 0.3 X10*3/uL (0.1-1.2); Monocytes Percent Auto 7.2 % (2-11); Neutrophils Absolute Auto 2.6 x10*3/uL (2.0-8.3); Neutrophils Percent Auto 57.3 % (45-73); Platelet Count 250 X10*3/uL (160-400); Red Blood Count 4.38 X10*6/uL (4.20-5.50); Red Cell Distribution Width 12.9 % (11.0-16.0); White Blood Count 4.6 X10*3/uL (4.8-10.8)
[2024-02-10 11:19] LABS: Alanine Aminotransferase 55 U/L (0-31); Albumin Level 4.3 g/dL (3.5-5.0); Alkaline Phosphatase 102 U/L (39-117); Anion Gap 12 (12-20); Aspartate Amino Transferase 36 U/L (5-31); Bilirubin Total 0.4 mg/dL (0.0-1.0); Blood Urea Nitrogen 15 mg/dL (9-16); Calcium 9.7 mg/dL (8.4-10.2); Carbon Dioxide 27 mmol/L (22-29); Chloride 108 mmol/L (96-108); Cholesterol 228 mg/dL (<200); Estimated Glomerular Filt Rate > 60; Glucose Fasting 96 mg/dL (60-99); HDL Cholesterol 62 mg/dL (>40); LDL Cholesterol Calculated 149 mg/dL (<100); Potassium 3.9 mmol/L (3.3-5.1); Sodium 143 mmol/L (135-145); Total Protein 7.9 g/dL (6.5-8.0); Triglycerides 85 mg/dL (<150)
== END 2024-02-10 09:01 | disposition home or self-care (01) ==
LOC: HO.LAB 09:00
PROVIDERS: PCP Internal Medicine; Visit Provider Internal Medicine
DX: E78.00 Pure hypercholesterolemia, unspecified (principal); I10 Essential (primary) hypertension
CPT/HCPCS: 36415; 80053; 80061; 85025

== ENCOUNTER 2024-02-14 16:59 | Outpatient (AMB) | payer OTHER, SELFPAY ==
--- NOTE | 2024-02-14 16:58 | MHC.PC.OV ---
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: Not Required per policy Accompanied by: Self / Same As Patient Allergies aspirin [ASPIRIN] Allergy (Severe, Verified 02/14/24 17:09) VOMITING, hives ibuprofen [From MOTRIN] Allergy (Unknown, Verified 02/14/24 17:09) UNKNOWN, hives atorvastatin Adverse Reaction (Intermediate, Verified 02/14/24 17:22) Headache Medication List - Last Reconciled 02/14/24 by Moises Peralta MD ascorbate calcium (vitamin C) 1 g PO Q6H cholecalciferol (vitamin D3) 25 mcg PO DAILY 180 days collagen (bovine) 100% 1 appl topical DAILY lisinopril 2.5 mg PO DAILY 90 days omega-3 fatty acids 500 mg PO DAILY pravastatin 20 mg PO BEDTIME 30 days vitamin B complex (B Complex-Vitamin B12 tablet) 1 tab PO DAILY Tobacco use date assessed: 02/14/24 Dental Screening Dental Screen Date: 02/14/24 Did you have a dental visit in the last 12 months?: Yes Did you have a dental problem in the last 6 months where you did not have access to dental care?: No Was dental information given to patient?: Patient has dentist HPI Annual PE HPI Details Patient comes in today for her annual physical examination States that she feels okay but admits that she has been under a lot of stress lately due to some family issues She denies any headaches or dizziness Denies any chest pains, no SOB No nausea/vomiting, no abdominal pain No change in bowel habits noted She denies any acute urinary symptoms She is again experiencing increased pain over her right lower back - thinks that it is because she has to frequently lean over or forward 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) States that she continues to do her back and neck exercises (that were previously taught by physical therapy) regularly whenever she can and that they do help She had her follow up labs done a few days ago - to discuss her results She is scheduled to get her annual mammogram done tomorrow and had her pap smear and gynecology exam done last April 2023 (pap was negative) She had her screening colonoscopy done in 2021 - (+) tubular adenoma and she was recommended to get her repeat colonoscopy done in 5 years (2026) Needs her Pravastatin Rx refilled - admits that she never picked up her Rx when we sent it in last October 2023 [facility] Medical History Pure hypercholesterolemia Mucous cyst of tonsil Overweight (BMI 25.0-29.9) Constipation Elevated LFTs Vitamin D deficiency Benign essential hypertension Surgical History (Updated 02/14/24 @ 17:35 by Moiess Peralta MD) History of colonoscopy Family History Father Heart disease Mother Diabetes Maternal Aunt Breast cancer Other Mental health problem Substance abuse Social History Housing: House Alcohol intake: never Patient Tobacco Use Status: Never used Tobacco e-Cigarette/Vaping Use: Never Used Second Hand Smoke Exposure: Yes service: No Current occupational status: employed Cognitive needs: No Hearing needs: No Vision needs: No Female Reproductive History Menstrual Age of Menarche: 9 Questionnaire PHQ-9 Over the last 2 weeks, how often have you been bothered by any of the following problems? 1. Little interest or pleasure in doing things: not at all 2. Feeling down, depressed, or hopeless: not at all 3. Trouble falling or staying asleep, or sleeping too much: not at all 4. Feeling tired or having little energy: not at all 5. Poor appetite or overeating: not at all 6. Feeling bad about yourself - or that you are a failure or have let yourself or your family down: not at all 7. Trouble concentrating on things, such as reading the newspaper or watching television: not at all 8. Moving or speaking so slowly that other people could have noticed. Or the opposite - being so fidgety or restless that you have been moving around a lot more than usual: not at all 9. Thoughts that you would be better off or of hurting yourself in some way: not at all Total score: 0 Depression Screening Interpretation: Negative Depression Screening Done: Yes 45699 - PHQ-9 Billing: Yes Source: Developed by Drs. Joe Trotter, Lita Diallo, Eliceo Wu and colleagues, with an educational brenda from [employer]. Thrive Questionnaire Date Thrive assessed: 02/14/24 I am a: Patient What is your living situation today?: I have a steady place to live Within the past 12 months, did the food you bought not last and you didn't have the money to get more?: Never true Within the past 12 months, did you worry whether your food would run out before you got money to buy more?: Never true Do you have trouble paying for medicines?: No Do you have trouble getting transportation to medical appointments?: No Do you have trouble paying your heating and electricity bill?: No Do you have trouble taking care of your child, family member or friend?: No Do you have trouble with day-to-day activities such as bathing, preparing meals, shopping, managing finances, etc.?: No Are you currently unemployed and looking for a job?: No Are you interested in more education?: No Please select the resources that you would like help with: None Currently or been in a relationship where the following occur: no concerns reported THRIVE Score: 0 AUDIT C Alcohol Use Questionnaire (AUDIT-C) 1. How often do you have a drink containing alcohol?: Never 3. How often do you have six or more drinks on one occasion?: Never Total Score: 0 Score Reviewed/Action Taken: Yes YONIS-7 AMB Questionnaire YONIS-7 Date YONIS - 7 assessed: 02/14/24 Feeling nervous, anxious, or on edge: 0 = Not at all Not being able to stop or control worryin = Not at all Worrying too much about different things: 0 = Not at all Trouble relaxin = Not at all Being so restless that it is hard to sit still: 0 = Not at all Becoming easily annoyed or irritable: 0 = Not at all Feeling afraid as if something awful might happen: 0 = Not at all Total YONIS-7 score (0-4 normal; 5-9 mild; 10-14 moderate; 15-21 severe): 0 Source: Developed by Lita Maxwell, Eliceo Wu and colleagues, with an educational brenda from [employer]. Review of Systems Const Denies chills, Denies fatigue, Denies fever(s), Denies headache(s) and Denies malaise Eyes Denies blurry vision, Denies change in vision, Denies irritation and Denies itchy eyes ENT Denies dysphagia, Denies dizziness, Denies otalgia, Denies headache(s), Denies nasal congestion, Denies neck pain, Denies odynophagia, Denies sinus pain and Denies sore throat Card Denies chest pain, Denies rapid heart rate, Denies irregular heart rhythm, Denies palpitations and Denies dyspnea Resp Denies chest congestion, Denies cough, Denies dyspnea and Denies wheezing GI Denies abdominal pain, Denies bloating, Denies constipation, Denies dysphagia, Denies heartburn, Denies diarrhea, Denies nausea, Denies odynophagia and Denies vomiting Denies hematuria, Denies urinary frequency, Denies dysuria, Denies urinary incontinence and Denies urinary urgency Musc Reports back pain (over the right lower back - recurrent), Denies arthralgias, Denies joint swelling, Denies muscle weakness and Denies neck pain Skin/Breast Denies breast pain, Denies breast mass, Denies change in pigmentation, Denies lesions, Denies rash and Denies unusual bruising Neuro Denies dizziness, Denies headache(s) and Denies paresthesias Psych Denies anxiety and Denies depression Endo Denies fatigue and Denies palpitations Kyle/Lymph Denies easy bruising Aller/Immun Denies itchy eyes and Denies wheezing Physical exam (Primary Care) Vital Signs: Last Vital Signs Pulse 67 02/14/24 16:59 BP 156/102 H 02/14/24 16:59 Pulse Ox 99 02/14/24 16:59 Oxygen Delivery Method Room Air 02/14/24 16:59 BMI result Body Mass Index 29.4 Tobacco/Smoking Status: Tobacco use Status Tobacco use date assessed 02/14/24 02/14/24 16:59 Patient Tobacco Use Status Never used Tobacco 02/14/24 16:59 e-Cigarette/Vaping Use Never Used 02/14/24 16:59 PHQ-9: PHQ-9 Score PHQ-9: Total score 0 02/14/24 16:59 Depression Screening Interpretation: Negative Thrive Assessment: Date of Thrive Assessment Date Thrive assessed 08/26/23 02/14/24 16:59 Currently or been in a relationship where the following occur: no concerns reported Const General: no acute distress, alert and awake Orientation/consciousness: patient oriented x3 [facility] Head: Yes normocephalic and Yes atraumatic Ears: external ears normal, TM's normal bilaterally and EAC's normal General nose exam: No nasal discharge present Face and sinus: Yes normal facial exam and Yes sinuses nontender Teeth and gingiva: dentition normal Throat: Yes posterior oropharynx normal and Yes tonsils normal (no TP congestion) Eyes Eyelids: Yes eyelids normal Conjunctivae: conjunctivae normal Pupils: Equal, round and reactive pupils present EOM: EOMs intact bilaterally Neck Neck: Yes no lymphadenopathy and Yes supple Thyroid: Thyroid normal Resp Auscultation: clear to auscultation bilaterally, no rales and no wheezes Cardio Rate: regular rate Rhythm: regular rhythm Heart sounds: no murmurs GI Palpation (GI): Soft to palpation, nontender and No hepatosplenomegaly present Auscultation: normal bowel sounds General: Yes no CVA tenderness Back/Spine/Pelvis Back: no CVA tenderness Thoracic/Lumbar Spine: thoracic and lumbar spine normal to inspection and No lumbar spinal tenderness Sacroiliac joints: on the right tender to palpation Skin Lesions: no lesions Rashes: no rashes Neuro General: patient oriented x3, moves all extremities, no focal motor deficits and CN's II-XI intact bilaterally Cranial nerves: Yes Equal, round and reactive pupils present Cognition (Neuro): normal cognition Gait exam (Neuro): Normal gait present Extrem General: Yes no clubbing, cyanosis or edema Results Reviewed Results Reviewed: Laboratory Tests 02/23/23 02/10/24 09:03 09:14 WBC 4.6 L Hgb 13.4 Hct 39.9 Plt Count 250 Sodium 143 Potassium 3.9 Creatinine 0.85 Estimated GFR > 60 Fasting Glucose 96 Calcium 9.7 AST 36 H ALT 55 H Triglycerides 85 Cholesterol 228 H LDL Cholesterol, Calc 149 H HDL Cholesterol 62 25-OH Vitamin D Total 41.4 Assessment and Plan Assessment & Plan (1) Annual physical exam: Code(s): Z00.00 - Encounter for general adult medical examination without abnormal findings Plan: Results of her labs done a few days ago reviewed and discussed with patient She is up-to-date with her annual gynecology exam and pap smear (done in April 2023) and her screening colonoscopy (2021) She is scheduled for her annual mammogram tomorrow She is currently going into year 2 of menopause, so is not yet due for BMD screening (2) Pure hypercholesterolemia: Code(s): E78.00 - Pure hypercholesterolemia, unspecified Plan: She is advised that her cholesterol levels, including her total and LDL cholesterol, have improved slightly from previous but are still elevated / higher than recommended Reinforced low cholesterol diet She could not tolerate Atorvastatin (10 mg QD) when it was prescribed for her a few months ago and we ended up switching her over to Pravastatin 20 mg QD but she now admits that 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 then Will send in a new Rx for Pravastatin 20 mg QD and patient is advised to start taking this IQRA Will have her recheck her labs and fasting lipids in 4 months for follow up (3) Elevated LFTs: Code(s): R79.89 - Other specified abnormal findings of blood chemistry Plan: She is cautioned that her LFTs are still elevated slightly on her recent labs - are most likely related to her weight and have advised that this should improve with weight loss Abdominal US done in the past, most recently in 2018, revealed (+) fatty infiltration of the liver Will recheck her LFTs in 3 to 4 months for follow up (4) Benign essential hypertension: Comment: Patient is on lisinopril... Code(s): I10 - Essential (primary) hypertension Plan: Reinforced low sodium diet - goal is systolic BP of at least 130 mm or less Her blood pressure is high today, even when rechecked after a few minutes Continue Lisinopril 2.5 mg QD for now but patient is advised to call if even her home BP readings are consistently elevated (5) Chronic right sacroiliac joint pain: Code(s): M53.3 - Sacrococcygeal disorders, not elsewhere classified; G89.29 - Other chronic pain Plan: X-rays of the SI joint done in January 2022 came out normal She was not able to go to physical therapy when referred last year as she was out of town for a while attending to some family issues Per request, she was referred to PT at [facility] a few months ago - states that she was instructed on some exercises that she has been doing regularly and her right low back pain has improved significantly since although it is again bothering her lately - thinks that this is most likely due to how she is sitting at work (6) Vitamin D deficiency: Code(s): E55.9 - Vitamin D deficiency, unspecified Plan: Continue Vitamin D3 1000 units QD (7) Constipation: Code(s): K59.00 - Constipation, unspecified Qualifiers: Constipation type: unspecified constipation type Qualified Code(s): K59.00 - Constipation, unspecified Plan: Encouraged increased oral fluids and dietary fiber Bowel movements have improved a lot in the past with OTC fiber supplements (8) Overweight (BMI 25.0-29.9): Code(s): E66.3 - Overweight Plan: Reinforced diet/exercise as tolerated/lose weight Plan Follow up in 4 months Orders: Orders Lipid Panel 4 Months E78.00 - Pure hypercholesterolemia, unspecified TSH reflex Free T4 4 Months E78.00 - Pure hypercholesterolemia, unspecified Vitamin D 25-OH Total 4 Months E55.9 - Vitamin D deficiency, unspecified Complete Blood Count Auto Diff 4 Months D64.9 - Anemia, unspecified Comprehensive [place]. Panel Fast 4 Months E78.00 - Pure hypercholesterolemia, unspecified UA CC w/rflx Micro + Cult 4 Months R30.0 - Dysuria Medications: Changed From pravastatin 20 mg PO BEDTIME 30 days 30 tabs 3RF To pravastatin 20 mg PO BEDTIME 90 days 90 tabs 1RF Coding Level of Care Code Est Pt Prev Care 40-64y(49183) Diagnoses Annual physical exam Z00.00 Pure hypercholesterolemia E78.00 Elevated LFTs R79.89 Benign essential hypertension I10 Chronic right sacroiliac joint pain M53.3; G89.29 Vitamin D deficiency E55.9 Constipation, unspecified constipation type K59.00 Constipation type: unspecified constipation type Overweight (BMI 25.0-29.9) E66.3
[2024-02-14 16:59] VITALS: BP 156/102; PULSE 67; O2SAT 99; BMI 29.4
[2024-02-14 17:15] VITALS: BP 160/100
== END 2024-02-14 17:28 | disposition home or self-care (01) ==
PROVIDERS: PCP Internal Medicine; Visit Provider Internal Medicine
DX: Z00.00 Encounter for general adult medical examination without abnormal findings (principal); E78.00 Pure hypercholesterolemia, unspecified; R79.89 Other specified abnormal findings of blood chemistry; I10 Essential (primary) hypertension; M53.3 Sacrococcygeal disorders, not elsewhere classified; G89.29 Other chronic pain; E55.9 Vitamin D deficiency, unspecified; K59.00 Constipation, unspecified; E66.3 Overweight
CPT/HCPCS: 99396

== ENCOUNTER 2024-02-15 07:54 | Outpatient (REF) | payer OTHER, SELFPAY | END 2024-02-15 07:55 | disposition home or self-care (01) | LOC: HO.MAMMO 07:54 | PROVIDERS: PCP Internal Medicine; Visit Provider Internal Medicine | DX: Z12.31 Encounter for screening mammogram for malignant neoplasm of breast (principal) | CPT/HCPCS: 77063; 77067 ==

== ENCOUNTER → 2024-02-15 08:00 | Outpatient (BNV) | payer OTHER, SELFPAY | PROVIDERS: PCP Internal Medicine; Visit Provider Radiology Diagnostic Radiology | DX: Z12.31 Encounter for screening mammogram for malignant neoplasm of breast (principal) | CPT/HCPCS: 77063; 77067 ==

== ENCOUNTER 2024-04-16 10:11 | Outpatient (AMB) | payer OTHER, SELFPAY ==
--- NOTE | 2024-04-16 10:25 | A.OFFPC_ITS ---
Vital Signs 04/16/24 10:26 Height 5 ft 2 in Weight 155 lb BMI 28.3 BP 140/82 H Blood Pressure Location Lt brachial Position Sitting Pulse 78 Pulse Source Pulse Oximeter Pulse Oximetry (%) 96 Oxygen Delivery Method Room Air Intake Visit Reasons: Nerve pain in face and neck Intake Note: Patient is here to follow up on Nerve pain in face and neck. Composite Technician Required: No Canvas Repairer: Present Accompanied by: Spouse Allergies aspirin [ASPIRIN] Allergy (Severe, Verified 04/16/24 10:49) VOMITING, hives ibuprofen [From MOTRIN] Allergy (Unknown, Verified 04/16/24 10:49) UNKNOWN, hives atorvastatin Adverse Reaction (Intermediate, Verified 04/16/24 10:49) Headache Medication List - Last Reconciled 04/16/24 by Moises Peralta MD ascorbate calcium (vitamin C) 1 g PO Q6H cholecalciferol (vitamin D3) 25 mcg PO DAILY 180 days collagen (bovine) 100% 1 appl topical DAILY lisinopril 2.5 mg PO DAILY 90 days omega-3 fatty acids 500 mg PO DAILY pravastatin 20 mg PO BEDTIME 90 days vitamin B complex (B Complex-Vitamin B12 tablet) 1 tab PO DAILY Tobacco use date assessed: 04/16/24 Dental Screening Dental Screen Date: 02/14/24 HPI Nerve pain in face and neck HPI Details Patient comes in today for further evaluation of some concerning right facial symptoms that have been occurring for the past couple of weeks States that she has been experiencing recurrent sharp brief pains over the entire right side of her face since 04/01/2024, sometimes over her right ear, at the right nostril area, on the right side of her forehead, etc She also shows a picture of what looks like a swollen and inflamed blood vessel on the right side of her forehead that she says she took a couple of days ago when her right forehead was hurting a lot Recalls that her symptoms started a couple of weeks ago when she just extended her neck to look up - noted a sharp pain over the right side of her face then and everything started from there She denies any recurrent headaches or dizziness lately Denies any chest pains, no SOB No nausea/vomiting, no abdominal pain No change in bowel habits noted [facility] Medical History (Updated 04/17/24 @ 03:30 by Moises Peralta MD) Pure hypercholesterolemia Mucous cyst of tonsil Overweight (BMI 25.0-29.9) Constipation Elevated LFTs Vitamin D deficiency Benign essential hypertension Surgical History History of colonoscopy Family History Father Heart disease Mother Diabetes Maternal Aunt Breast cancer Other Mental health problem Substance abuse Social History Housing: House Alcohol intake: never Patient Tobacco Use Status: Never used Tobacco e-Cigarette/Vaping Use: Never Used Second Hand Smoke Exposure: Yes service: No Current occupational status: employed Cognitive needs: No Hearing needs: No Vision needs: No Female Reproductive History Menstrual Age of Menarche: 9 Questionnaire Thrive Questionnaire Date Thrive assessed: 02/14/24 YONIS-7 AMB Questionnaire YONIS-7 Date YONIS - 7 assessed: 02/14/24 Source: Developed by Drs. Joe Trotter, Lita Diallo, Eliceo Wu and colleagues, with an educational brenda from [employer]. Review of Systems Const Denies chills, Denies fatigue, Denies fever(s), Denies headache(s) and Denies weakness Eyes Denies blurry vision, Denies change in vision and Denies photophobia ENT Denies dysphagia, Denies dizziness, Denies otalgia, Denies headache(s), Reports neck pain (recurrent), Denies odynophagia and Denies sore throat Card Denies chest pain, Denies palpitations and Denies dyspnea Resp Denies cough and Denies dyspnea GI Denies abdominal pain, Denies constipation, Denies dysphagia, Denies heartburn, Denies diarrhea, Denies nausea, Denies odynophagia and Denies vomiting Denies difficulty voiding, Denies nocturia, Denies dysuria and Denies urinary urgency Musc Reports back pain (over the lower back) and Reports neck pain (recurrent) Skin/Breast Denies rash Neuro Details: recurrent sharp pains occurring randomly over the right side of her face Reports as per HPI, Denies dizziness, Denies headache(s) and Denies weakness Endo Denies fatigue and Denies palpitations Physical exam (Primary Care) Vital Signs: Last Vital Signs Pulse 78 04/16/24 10:26 BP 140/82 H 04/16/24 10:26 Pulse Ox 96 04/16/24 10:26 Oxygen Delivery Method Room Air 04/16/24 10:26 BMI result Body Mass Index 28.3 Tobacco/Smoking Status: Tobacco use Status Tobacco use date assessed 04/16/24 04/16/24 10:30 Patient Tobacco Use Status Never used Tobacco 04/16/24 10:30 e-Cigarette/Vaping Use Never Used 04/16/24 10:30 Thrive Assessment: Date of Thrive Assessment Date Thrive assessed 02/14/24 04/16/24 10:30 Const General: no acute distress and alert Orientation/consciousness: patient oriented x3 HEN[facility] Head: Yes normal to inspection, No scalp tenderness and No Temporal artery tenderness present Ears: TM's normal bilaterally and EAC's normal General nose exam: Normal external nose present Face and sinus: Yes face symmetric, No Facial tenderness on exam of face and sinuses and No Flattened naso-labial fold present Mouth: No abnormal TMJ Throat: Yes posterior oropharynx normal and Yes tonsils normal (no TP congestion) Eyes Eyelids: Yes eyelids normal and No lid lag Pupils: Equal, round and reactive pupils present EOM: EOMs intact bilaterally Direct Ophthalmoscopy: No photophobia Neck Neck: Yes no lymphadenopathy and Yes supple Resp Auscultation: clear to auscultation bilaterally, no rales and no wheezes Cardio Rate: regular rate Rhythm: regular rhythm Heart sounds: no murmurs GI Palpation (GI): Soft to palpation and nontender Auscultation: normal bowel sounds Skin General skin exam: no rashes or lesions noted Neuro General: patient oriented x3 Cranial nerves: Yes Equal, round and reactive pupils present Extrem General: Yes no clubbing, cyanosis or edema Assessment and Plan Assessment & Plan (1) 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 Panel 04/16/24 G51.8 - Other disorders of facial nerve Lyme IgG/IgM w/reflex to WB 04/16/24 G51.8 - Other disorders of facial nerve HSV I and II,IHC 04/16/24 G51.8 - Other disorders of facial nerve Complete Blood Count Auto Diff 04/16/24 G51.8 - Other disorders of facial nerve C Reactive Protein 04/16/24 G51.8 - Other disorders of facial nerve Erythrocyte Sedimentation Rate 04/16/24 G51.8 - Other disorders of facial nerve Vitamin B12 and Folate 04/16/24 E53.8 - Deficiency of other specified B group vitamins, G51.8 - Other disorders of facial nerve Magnesium 04/16/24 E83.42 - Hypomagnesemia, G51.8 - Other disorders of facial nerve TSH reflex Free T4 04/16/24 G51.8 - Other disorders of facial nerve XR cervical spine 3V 04/16/24 G51.8 - Other disorders of facial nerve, M54.2 - Cervicalgia Coding Level of Care Code Est Pt Level 3 (71860) Diagnoses Facial neuralgia G51.8 Neck pain M54.2
[2024-04-16 10:26] VITALS: BP 140/82; PULSE 78; O2SAT 96; BMI 28.3
== END 2024-04-16 13:20 | disposition home or self-care (01) ==
PROVIDERS: PCP Internal Medicine; Visit Provider Internal Medicine
DX: G51.8 Other disorders of facial nerve (principal); M54.2 Cervicalgia
CPT/HCPCS: 99213

== ENCOUNTER 2024-04-16 14:51 | Outpatient (REF) | payer OTHER, SELFPAY ==
--- NOTE | ~2024-04-16 | XR_ITS ---
EXAMINATION: XR CERVICAL SPINE CLINICAL INFORMATION: Neck pain. COMPARISON: None TECHNIQUE: 6 views of the cervical spine. FINDINGS: Slight reversal of the normal cervical lordosis. Moderate cervical spondylosis with loss of disc space height at C5-C6. Facet hypertrophy with neural foraminal encroachment at C5-C6. XR/XR cervical spine 3V IMPRESSION: Moderate degenerative disc disease at C5-C6. This study was presented today April 29, 2024 for interpretation. Stat results provided at this time as requested by referring provider.
[2024-04-16 15:07] LABS: MANUAL DIFF FLAG NO
[2024-04-16 15:40] LABS: Basophils Absolute Auto 0.1 X10*3/uL (0.0-0.2); Basophils Percent Auto 0.8 % (0-2); Eosinophils Absolute Auto 0.1 X10*3/uL (0.0-0.4); Eosinophils Percent Auto 1.7 % (0-4); Hematocrit 39.1 % (37.0-47.0); Imm Gran Abs Auto 0.02 X10*3/uL (0.00-0.03); Imm Gran Pct Auto 0.3 % (0.0-0.4); Lymphocytes Absolute Auto 1.7 X10*3/uL (1.2-4.9); Mean Corpuscular HGB Conc 33.2 g/dl (31.0-35.0); Mean Corpuscular Hemoglobin 30.5 pg (27.0-33.0); Mean Corpuscular Volume 91.8 fL (80.0-98.0); Mean Platelet Volume 11.1 fL (9.4-12.3); Monocytes Absolute Auto 0.5 X10*3/uL (0.1-1.2); Monocytes Percent Auto 8.1 % (2-11); Neutrophils Absolute Auto 3.6 x10*3/uL (2.0-8.3); Neutrophils Percent Auto 61.1 % (45-73); Platelet Count 222 X10*3/uL (160-400); Red Blood Count 4.26 X10*6/uL (4.20-5.50); White Blood Count 5.9 X10*3/uL (4.8-10.8)
[2024-04-16 16:10] LABS: Alanine Aminotransferase 40 U/L (0-31); Albumin Level 4.4 g/dL (3.5-5.0); Alkaline Phosphatase 88 U/L (39-117); Anion Gap 15 (12-20); Aspartate Amino Transferase 30 U/L (5-31); Bilirubin Total 0.4 mg/dL (0.0-1.0); Blood Urea Nitrogen 14 mg/dL (9-16); C Reactive Protein 0.13 mg/dL (< or = 0.50); Carbon Dioxide 26 mmol/L (22-29); Chloride 105 mmol/L (96-108); Estimated Glomerular Filt Rate > 60; Glucose Random 100 mg/dL (60-115); Magnesium 2.1 mg/dL (1.6-2.6); Potassium 4.4 mmol/L (3.3-5.1); Sodium 142 mmol/L (135-145); Total Protein 7.6 g/dL (6.5-8.0)
[2024-04-16 16:25] LABS: Erythrocyte Sedimentation Rate 16 MM/HR (0-20)
[2024-04-16 16:25] LABS: TSH reflex Free T4 1.03 uIU/mL (0.32-4.0)
[2024-04-16 16:40] LABS: Folate 13.7 ng/mL (> or = 4.0); Vitamin B12 1454 pg/mL (200-900)
[2024-04-17 21:04] LABS: Lyme Abs Screen <0.90 index
== END 2024-04-16 14:52 | disposition home or self-care (01) ==
LOC: HO.LAB 14:51
PROVIDERS: PCP Internal Medicine; Visit Provider Internal Medicine
DX: M54.2 Cervicalgia (principal); G51.8 Other disorders of facial nerve; E53.8 Deficiency of other specified B group vitamins; E83.52 Hypercalcemia
CPT/HCPCS: 36415; 72040; 80053; 82607; 82746; 83735; 84443; 85025; 85652; 86140; 86617; 86618

== ENCOUNTER 2024-06-12 08:03 | Outpatient (RCR) | payer OTHER, SELFPAY ==
[2024-06-12 08:07] VITALS: BP 183/101
--- NOTE | 2024-06-12 13:53 | MHC.PT.EP ---
[facility] [place] Office [place] Office [place] Office [address] [phone] F: [phone] F: [phone] F: [phone] F: [phone] Physical Therapy Plan of Care Date of Evaluation: 06/12/24 Date of Surgery: Diagnosis: Cervicalgia and other disorders of facial nerve Assessment: Pt is a 54 y/o F with HTN who is referred to PT for eval and treat of cervicalgia and other disorders of facial nerve resulting in decreased tolerance or ability for working, washing face and looking up secondary to decreased cervical ROM, x-rays showing 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 Pt is motivated and is deemed an appropriate candidate to receive skilled PT services to address her physical impairments in order to improve her function. Frequency and Duration: The patient will be seen Hold until pt sees neurologist next week Short Term Goals: Pt will be able to I demonstrate diaphragmatic breathing for stress relief. Pt will report no disturbance in her sleep due to neck pain; initial slightly disturbed. Alf Goals: Pt will have decreased tissue tension in B UT, scalenes, suboccipitals. Pt will report only having slight headaches infrequently; initial moderate headaches frequently. Pt will improve NDI score by at least 10 points. Treatment Plan: Modalities to reduce pain, spasms and effusion. Manual therapy to restore motion and function. Therapeutic exercise to improve strength and flexibility. Neuromuscular re-education for posture and balance. Therapeutic activities to return to functional activities of daily living. Electronically signed by: Mack Jorgensen PT. Please sign and return to therapist. Thank you for your referral.
--- NOTE | 2025-01-15 07:51 | MHC.PT.DC ---
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 Electronically signed by: Mack Jorgensen PT. Please sign and return to therapist. Thank you for your referral.
== END 2025-01-15 07:52 | disposition home or self-care (01) ==
LOC: HO.PT 08:03
PROVIDERS: PCP Internal Medicine; Visit Provider Internal Medicine
DX: M54.2 Cervicalgia (principal); G51.8 Other disorders of facial nerve; M47.812 Spondylosis without myelopathy or radiculopathy, cervical region
CPT/HCPCS: 97140; 97161

== ENCOUNTER 2024-10-05 10:55 | Outpatient (AMB) | payer OTHER, SELFPAY ==
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
[2024-10-05 11:04] VITALS: BP 140/82; PULSE 66; O2SAT 98; BMI 27.8
== END 2024-10-05 12:03 | disposition home or self-care (01) ==
PROVIDERS: PCP Internal Medicine; Visit Provider Internal Medicine
DX: S06.0X9A Concussion with loss of consciousness of unspecified duration, initial encounter (principal); S16.1XXA Strain of muscle, fascia and tendon at neck level, initial encounter; S29.019A Strain of muscle and tendon of unspecified wall of thorax, initial encounter; Z04.3 Encounter for examination and observation following other accident; S39.012A Strain of muscle, fascia and tendon of lower back, initial encounter; S80.01XA Contusion of right knee, initial encounter; S80.11XA Contusion of right lower leg, initial encounter; V89.2XXS Person injured in unspecified motor-vehicle accident, traffic, sequela

== ENCOUNTER → 2024-10-05 10:55 | Outpatient (BNVA) | payer OTHER, SELFPAY | PROVIDERS: PCP Internal Medicine; Visit Provider Internal Medicine | DX: S06.0X9D Concussion with loss of consciousness of unspecified duration, subsequent encounter (principal); S16.1XXD Strain of muscle, fascia and tendon at neck level, subsequent encounter; S29.019D Strain of muscle and tendon of unspecified wall of thorax, subsequent encounter; S39.012D Strain of muscle, fascia and tendon of lower back, subsequent encounter; S80.01XD Contusion of right knee, subsequent encounter; S80.11XD Contusion of right lower leg, subsequent encounter; V49.50XD Passenger injured in collision with unspecified motor vehicles in traffic accident, subsequent encounter | CPT/HCPCS: 96127 ==

== ENCOUNTER 2024-11-13 11:02 | Outpatient (AMB) | payer OTHER, SELFPAY ==
[2024-11-13 11:17] VITALS: BP 122/84; PULSE 64; O2SAT 98; BMI 28.4
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
--- OUTSIDE RECORDS SUMMARY | 2024-11-13 11:59 | XMS_ITS | Continuity of Care Document ---
Author Organization [facility] ter Address [address] [place] [address]- Care Team Providers Care Stopping Builder Name Role Phone Moises Peralta MD Primary Care Physician Encounter [facility] [place] R [id number] Date(s): 10/08/24 - 11/07/[address] [address] Attending Physician: Not on Staff, Attending MD Admitting Physician: Not on Staff, Admitting MD Referring Physician: Not on Staff, Referring MD Encounter Type: Pre-Outpt Allergies, Adverse Reactions, Alerts Substance Criticality Severity Reaction Reaction Severity Status aspirin Unable to assess criticality Persistent Moderate Active Medications B-Complex with B-12 By Mouth, Daily, 0 Refills, Maintenance, 06/18/24 1:59:00 PM EDT, Partial fill upon patient request if the prescription is for a schedule II opioid drug. Start Date: 06/18/24 Status: Ordered Repeat number: 1 Fish Oil By Mouth, 0 Refills, Maintenance, 06/18/24 1:59:00 PM EDT, Partial fill upon patient request if the prescription is for a schedule II opioid drug. Start Date: 06/18/24 Status: Ordered Repeat number: 1 gabapentin 100 mg oral capsule Refills 0, Maintenance, 06/18/24 1:58:00 PM EDT, Partial fill upon patient request if the prescription is for a schedule II opioid drug. Start Date: 06/18/24 Status: Ordered Repeat number: 1 lisinopril 2.5 mg oral tablet Refills 0, Maintenance, 06/18/24 1:58:00 PM EDT, Partial fill upon patient request if the prescription is for a schedule II opioid drug. Start Date: 06/18/24 Status: Ordered Repeat number: 1 pravastatin 20 mg oral tablet Refills 0, Maintenance, 06/18/24 1:58:00 PM EDT, Partial fill upon patient request if the prescription is for a schedule II opioid drug. Start Date: 06/18/24 Status: Ordered Repeat number: 1 Vitamin C 250 mg oral tablet 1 tablet = 250 mg, By Mouth, Daily, # 30 tablet, 0 Refills, Maintenance, 09/28/24 5:40:00 PM EST, Tablet, Partial fill upon patient request if the prescription is for a schedule II opioid drug. Start Date: 09/28/24 Status: Ordered Quantity: 30.0 Unit: tablet Repeat number: 1 VITAMIN D3 1,000 UNIT SOFTGEL VITAMIN D3 1,000 UNIT SOFTGEL, 0 Refills, Maintenance, 06/18/24 1:58:00 PM EDT Start Date: 06/18/24 Status: Ordered Repeat number: 1 Social History Social History Type Response Smoking Status Never (less than 100 in lifetime) entered on: 06/18/24 Sex Sex Representation Female (finding) Patient Care team information Care Team Personnel Name: Fabian ALVAREZ, Moises Medina Position: Reference Physician Member Role: PCP Address: [address] [place] [address] Telecom: Care Team Related Persons Name: ROMÁN TINEO Insurance Providers Guarantor name: BON Health Plan Information #: 1 Payer: [employer] HMO Member Number: NA Policy Number: NA Group Number: NA
--- OUTSIDE RECORDS SUMMARY | 2024-11-13 11:59 | XMS_ITS | Continuity of Care Document ---
Author Organization [facility] ion Address [address] [place] [address]- Care Team Providers Care Systems Planner Name Role Phone Moises Peralta MD Primary Care Physician [phone] [id number] Date(s): 11/09/24 - 11/09/[address] [address] Discharge Disposition: A-D/C Home Attending Physician: Moises Peralta MD Admitting Physician: Moises Prealta MD Referring Physician: Moises Peralta MD Encounter Type: Disch Recurring OP Allergies, Adverse Reactions, Alerts Substance Criticality Severity [...] Position: Reference Physician Member Role: PCP Address: [address] [place] [address] Telecom: Care Team Related Persons Name: ROMÁN TINEO Insurance Providers Guarantor name: BON Health Plan Information #: 1 Payer: [facility] SELECT HMO Member Number: [id number] Policy Number: NA Group Number: [id number] Health Plan Information #: 2 Payer: [facility] SELECT HMO Member Number: [id number] Policy Number: NA Group Number: [id number]
--- OUTSIDE RECORDS SUMMARY | 2024-11-13 11:59 | XMS_ITS | Continuity of Care Document ---
Author Organization [facility] ter Address [address] [place] [address]- Care Team Providers Care Industrial Arts Teacher Name Role Phone Moises Peralta MD Primary Care Physician Encounter [facility] [place] Date(s): 09/29/24 - 10/29/[address] [address] Attending Physician: Not on [...] Position: Reference Physician Member Role: PCP Address: [address] [place] [address] Telecom: Care Team Related Persons Name: ROMÁN TINEO Insurance Providers Guarantor name: BON Health Plan Information #: 1 Payer: [employer] HMO Member Number: NA Policy Number: NA Group Number: NA
== END 2024-11-13 12:01 | disposition home or self-care (01) ==
PROVIDERS: PCP Internal Medicine; Visit Provider Internal Medicine
DX: S06.0X9D Concussion with loss of consciousness of unspecified duration, subsequent encounter (principal); Z04.3 Encounter for examination and observation following other accident; H53.8 Other visual disturbances; V89.2XXS Person injured in unspecified motor-vehicle accident, traffic, sequela; S16.1XXD Strain of muscle, fascia and tendon at neck level, subsequent encounter; S29.019D Strain of muscle and tendon of unspecified wall of thorax, subsequent encounter; S39.012D Strain of muscle, fascia and tendon of lower back, subsequent encounter

== ENCOUNTER → 2024-11-13 11:02 | Outpatient (BNVA) | payer OTHER, SELFPAY | PROVIDERS: PCP Internal Medicine; Visit Provider Internal Medicine | DX: S06.0X9D Concussion with loss of consciousness of unspecified duration, subsequent encounter (principal); S16.1XXD Strain of muscle, fascia and tendon at neck level, subsequent encounter; S29.019D Strain of muscle and tendon of unspecified wall of thorax, subsequent encounter; S39.012D Strain of muscle, fascia and tendon of lower back, subsequent encounter; H53.8 Other visual disturbances; V89.2XXD Person injured in unspecified motor-vehicle accident, traffic, subsequent encounter | CPT/HCPCS: 96127 ==

== ENCOUNTER 2024-12-24 12:14 | Outpatient (AMB) | payer OTHER, SELFPAY ==
[2024-12-24 12:37] VITALS: BP 126/80; PULSE 86; O2SAT 98; BMI 28.3
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
== END 2024-12-24 13:17 | disposition home or self-care (01) ==
LOC: HO.HMCH 12:15
PROVIDERS: PCP Internal Medicine; Visit Provider Internal Medicine
DX: S06.0X9S Concussion with loss of consciousness of unspecified duration, sequela (principal); V89.2XXS Person injured in unspecified motor-vehicle accident, traffic, sequela; H53.8 Other visual disturbances; S16.1XXS Strain of muscle, fascia and tendon at neck level, sequela; S29.019S Strain of muscle and tendon of unspecified wall of thorax, sequela; S39.012S Strain of muscle, fascia and tendon of lower back, sequela; F43.10 Post-traumatic stress disorder, unspecified; F41.9 Anxiety disorder, unspecified

== ENCOUNTER → 2024-12-24 12:14 | Outpatient (BNVA) | payer OTHER, SELFPAY | PROVIDERS: PCP Internal Medicine; Visit Provider Internal Medicine | DX: H53.8 Other visual disturbances (principal); S06.0X9S Concussion with loss of consciousness of unspecified duration, sequela; S16.1XXS Strain of muscle, fascia and tendon at neck level, sequela; S29.019S Strain of muscle and tendon of unspecified wall of thorax, sequela; S39.012S Strain of muscle, fascia and tendon of lower back, sequela; V89.2XXS Person injured in unspecified motor-vehicle accident, traffic, sequela; F43.10 Post-traumatic stress disorder, unspecified; F41.9 Anxiety disorder, unspecified | CPT/HCPCS: 96127 ==

== ENCOUNTER 2025-01-22 10:49 | Outpatient (AMB) | payer OTHER, SELFPAY ==
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
[2025-01-22 10:53] VITALS: BP 126/80; PULSE 71; O2SAT 98; BMI 28.0
== END 2025-01-22 11:33 | disposition home or self-care (01) ==
LOC: HO.HMCH 10:50
PROVIDERS: PCP Internal Medicine; Visit Provider Internal Medicine
DX: S06.0X9S Concussion with loss of consciousness of unspecified duration, sequela (principal); H53.8 Other visual disturbances; S16.1XXS Strain of muscle, fascia and tendon at neck level, sequela; Z04.3 Encounter for examination and observation following other accident; S29.019S Strain of muscle and tendon of unspecified wall of thorax, sequela; V89.2XXS Person injured in unspecified motor-vehicle accident, traffic, sequela; S39.012S Strain of muscle, fascia and tendon of lower back, sequela; F43.10 Post-traumatic stress disorder, unspecified; F41.9 Anxiety disorder, unspecified; G47.09 Other insomnia

== ENCOUNTER → 2025-01-22 10:49 | Outpatient (BNVA) | payer OTHER, SELFPAY | PROVIDERS: PCP Internal Medicine; Visit Provider Internal Medicine | DX: S06.0X9S Concussion with loss of consciousness of unspecified duration, sequela (principal); S16.1XXS Strain of muscle, fascia and tendon at neck level, sequela; S29.019S Strain of muscle and tendon of unspecified wall of thorax, sequela; S39.012S Strain of muscle, fascia and tendon of lower back, sequela; V89.2XXS Person injured in unspecified motor-vehicle accident, traffic, sequela; H53.8 Other visual disturbances; F43.10 Post-traumatic stress disorder, unspecified; F41.9 Anxiety disorder, unspecified; G47.09 Other insomnia; Z79.899 Other long term (current) drug therapy | CPT/HCPCS: 96127 ==

== ENCOUNTER 2025-02-23 11:00 | Outpatient (REF) | payer OTHER, SELFPAY ==
--- NOTE | ~2025-02-23 | XR_ITS ---
EXAMINATION: XR KNEE 4 OR MORE VIEWS RIGHT HISTORY: M25.561 - Pain in right knee COMPARISON: There are no prior studies available for comparison. FINDINGS: Four views of the right knee are submitted. Osseous mineralization is normal. There is no fracture or dislocation. There is moderate osteoarthritis of the medial compartment, with joint space narrowing and osteophyte formation. Milder changes are noted involving the patellofemoral compartment. The soft tissues are unremarkable. There is no joint effusion. XR/XR knee RT 4V IMPRESSION: Osteoarthritis of the right knee as described. Electronically signed by: Joe England MD 02/23/2025 02:34 PM EDT
== END 2025-02-23 11:01 | disposition home or self-care (01) ==
LOC: HO.XRAY 11:00
PROVIDERS: PCP Internal Medicine; Visit Provider Internal Medicine
DX: R41.3 Other amnesia (principal); S06.0X9S Concussion with loss of consciousness of unspecified duration, sequela; S16.1XXS Strain of muscle, fascia and tendon at neck level, sequela; S29.019S Strain of muscle and tendon of unspecified wall of thorax, sequela; S39.012S Strain of muscle, fascia and tendon of lower back, sequela; V89.2XXS Person injured in unspecified motor-vehicle accident, traffic, sequela; M25.561 Pain in right knee; H53.8 Other visual disturbances; F43.10 Post-traumatic stress disorder, unspecified; F41.9 Anxiety disorder, unspecified; G47.09 Other insomnia
CPT/HCPCS: 73564; 96127

== ENCOUNTER 2025-02-23 11:00 | Outpatient (AMB) | payer OTHER, SELFPAY ==
[2025-02-23 11:02] VITALS: BP 134/90; PULSE 66; O2SAT 97; BMI 28.0
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
== END 2025-02-23 11:50 | disposition home or self-care (01) ==
LOC: HO.HMCH 11:00
PROVIDERS: PCP Internal Medicine; Visit Provider Internal Medicine
DX: R41.3 Other amnesia (principal); H53.8 Other visual disturbances; M25.561 Pain in right knee; Z04.3 Encounter for examination and observation following other accident; S06.0X9S Concussion with loss of consciousness of unspecified duration, sequela; V89.2XXS Person injured in unspecified motor-vehicle accident, traffic, sequela; S16.1XXS Strain of muscle, fascia and tendon at neck level, sequela; S29.019S Strain of muscle and tendon of unspecified wall of thorax, sequela; S39.012S Strain of muscle, fascia and tendon of lower back, sequela; F43.10 Post-traumatic stress disorder, unspecified; F41.9 Anxiety disorder, unspecified; G47.09 Other insomnia

== ENCOUNTER → 2025-02-23 12:02 | Outpatient (BNV) | payer OTHER, SELFPAY | PROVIDERS: PCP Internal Medicine; Visit Provider Radiology Diagnostic Radiology | DX: M17.11 Unilateral primary osteoarthritis, right knee (principal) | CPT/HCPCS: 73564 ==

== ENCOUNTER 2025-03-29 14:47 | Outpatient (REF) | payer OTHER, SELFPAY | END 2025-03-29 14:48 | disposition home or self-care (01) | LOC: HO.MAMMO 14:47 | PROVIDERS: PCP Internal Medicine; Visit Provider Internal Medicine | DX: Z12.31 Encounter for screening mammogram for malignant neoplasm of breast (principal) | CPT/HCPCS: 77063; 77067 ==

== ENCOUNTER → 2025-03-29 15:00 | Outpatient (BNV) | payer OTHER, SELFPAY | PROVIDERS: PCP Internal Medicine; Visit Provider Internal Medicine | DX: Z12.31 Encounter for screening mammogram for malignant neoplasm of breast (principal) | CPT/HCPCS: 77063; 77067 ==

== ENCOUNTER 2025-04-01 14:45 | Outpatient (AMB) | payer OTHER, SELFPAY ==
[2025-04-01 14:49] VITALS: BP 130/86; PULSE 92; O2SAT 97; BMI 27.5
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
== END 2025-04-01 15:32 | disposition home or self-care (01) ==
LOC: HO.HMCH 14:45
PROVIDERS: PCP Internal Medicine; Visit Provider Internal Medicine
DX: R41.3 Other amnesia (principal); F43.10 Post-traumatic stress disorder, unspecified; G47.09 Other insomnia; F41.9 Anxiety disorder, unspecified; V89.2XXS Person injured in unspecified motor-vehicle accident, traffic, sequela; S06.0X9S Concussion with loss of consciousness of unspecified duration, sequela; S16.1XXS Strain of muscle, fascia and tendon at neck level, sequela; S29.019S Strain of muscle and tendon of unspecified wall of thorax, sequela; S39.012S Strain of muscle, fascia and tendon of lower back, sequela

== ENCOUNTER → 2025-04-01 14:45 | Outpatient (BNVA) | payer OTHER, SELFPAY | PROVIDERS: PCP Internal Medicine; Visit Provider Internal Medicine | DX: R42 Dizziness and giddiness (principal); R51.9 Headache, unspecified; R41.3 Other amnesia; F43.10 Post-traumatic stress disorder, unspecified; F41.9 Anxiety disorder, unspecified; G47.09 Other insomnia; S06.0X9S Concussion with loss of consciousness of unspecified duration, sequela; S16.1XXS Strain of muscle, fascia and tendon at neck level, sequela; S29.019S Strain of muscle and tendon of unspecified wall of thorax, sequela; S39.012S Strain of muscle, fascia and tendon of lower back, sequela; V89.9XXS Person injured in unspecified vehicle accident, sequela | CPT/HCPCS: 96127 ==

== ENCOUNTER 2025-05-14 10:50 | Outpatient (AMB) | payer OTHER, SELFPAY ==
[2025-05-14 10:59] VITALS: BP 152/84; PULSE 65; O2SAT 98; BMI 28.0
--- NOTE | 2025-05-14 10:59 | A.OFFPC_ITS ---
Vital Signs 05/14/25 10:59 Height 5 ft 2 in Weight 153 lb 4 oz BMI 28.0 BP 152/84 H Blood Pressure Location Lt brachial Position Sitting Pulse 65 Pulse Source Pulse Oximeter Pulse Oximetry (%) 98 Oxygen Delivery Method Room Air Intake Visit Reasons: annual exam It Sales Representative Required: No Accompanied by: Self / Same As Patient Allergies aspirin (ASPIRIN) Allergy (Severe, Verified 05/14/25 11:27) VOMITING, hives ibuprofen (From MOTRIN) Allergy (Unknown, Verified 05/14/25 11:27) UNKNOWN, hives atorvastatin Adverse Reaction (Intermediate, Verified 05/14/25 11:27) Headache Medication List - Last Reconciled 05/14/25 by Moises Peralta MD ascorbate calcium (vitamin C) 1 g PO Q6H cholecalciferol (vitamin D3) 25 mcg PO DAILY 180 days collagen (bovine) 100% 1 appl topical DAILY doxepin 10 mg PO BEDTIME PRN 30 days doxepin Take 1 to 2 tablets orally bedtime PRN; escitalopram oxalate 5 mg PO DAILY 30 days gabapentin 100 mg PO BEDTIME lisinopril 2.5 mg PO DAILY 90 days melatonin 10 mg PO BEDTIME PRN 30 days omega-3 fatty acids 500 mg PO DAILY pravastatin 20 mg PO BEDTIME 90 days tizanidine 4 mg PO Q8H PRN triamcinolone acetonide 0.5% 1 appl topical TID PRN vitamin B complex (B Complex-Vitamin B12 tablet) 1 tab PO DAILY Tobacco use date assessed: 05/14/25 Dental Screening Dental Screen Date: 05/14/25 Did you have a dental visit in the last 12 months?: No Did you have a dental problem in the last 6 months where you did not have access to dental care?: No Was dental information given to patient?: Patient has dentist HPI annual exam HPI Details Patient comes in today for her annual physical examination States that she currently feels okay although she is unhappy that she was let go from her job when she tried to go back to work recently but was advised that they cannot accommodate her returning to work on a reduced schedule so she is now trying to apply for unemployment assistance She denies any headaches or dizziness lately Denies any chest pains, no increased SOB No nausea/vomiting, no abdominal pain No change in bowel habits noted She denies any acute urinary symptoms Patient adds that she has been experiencing frequent menopausal symptoms lately, especially hot flashes and increased sweating Notes that she has been breaking out often in a scattered erythematous rash that sometimes feel itchy She's had no follow up labs done recently Her annual mammogram was last done back on 03/29/2025 - mammogram came out normal Her last pap smear and insecticide mixer exam was done a couple of years ago on 05/27/2023 - pap was negative; patient needs to schedule her yearly gynecology follow up exam IQRA Her screening colonoscopy was last done on 01/29/[address] Nam - (+) TA and recommend repeat colonoscopy in 5 years (2026) [facility] Medical History (Updated 05/15/25 @ 02:23 by Moises Peralta MD) Trigeminal neuralgia of right side of face Essential hypertension Pure hypercholesterolemia Mucous cyst of tonsil Overweight (BMI 25.0-29.9) Constipation Elevated LFTs Vitamin D deficiency Benign essential hypertension Surgical History History of colonoscopy Family History Father Heart disease Mother Diabetes Maternal Aunt Breast cancer Other Mental health problem Substance abuse Social History Housing: House Alcohol intake: never Patient Tobacco Use Status: Never used Tobacco e-Cigarette/Vaping Use: Never Used Second Hand Smoke Exposure: Yes service: No Current occupational status: employed Cognitive needs: No Hearing needs: No Vision needs: No Female Reproductive History Menstrual Age of Menarche: 9 Questionnaire PHQ-9 Over the last 2 weeks, how often have you been bothered by any of the following problems? 1. Little interest or pleasure in doing things: several days 2. Feeling down, depressed, or hopeless: several days 3. Trouble falling or staying asleep, or sleeping too much: several days 4. Feeling tired or having little energy: several days 5. Poor appetite or overeating: not at all 6. Feeling bad about yourself - or that you are a failure or have let yourself or your family down: not at all 7. Trouble concentrating on things, such as reading the newspaper or watching television: several days 8. Moving or speaking so slowly that other people could have noticed. Or the opposite - being so fidgety or restless that you have been moving around a lot more than usual: several days 9. Thoughts that you would be better off or of hurting yourself in some way: not at all Total score: 6 Depression Screening Interpretation: Positive Depression Screening Follow-up: Existing condition and In treatment Depression Screening Done: Yes 78595 - PHQ-9 Billing: Yes Source: Developed by Drs. Joe Trotter, Lita Diallo, Eliceo Wu and colleagues, with an educational brenda from [employer]. Thrive Questionnaire Date Thrive assessed: 05/14/25 I am a: Patient What is your living situation today?: I have a steady place to live Within the past 12 months, did the food you bought not last and you didn't have the money to get more?: Never true Within the past 12 months, did you worry whether your food would run out before you got money to buy more?: Never true Do you have trouble paying for medicines?: I choose not to answer this question Do you have trouble getting transportation to medical appointments?: Yes Do you have trouble paying your heating and electricity bill?: I choose not to answer this question Do you have trouble taking care of your child, family member or friend?: I choose not to answer this question Do you have trouble with day-to-day activities such as bathing, preparing meals, shopping, managing finances, etc.?: I choose not to answer this question Are you currently unemployed and looking for a job?: I choose not to answer this question Are you interested in more education?: I choose not to answer this question Please select the resources that you would like help with: None Currently or been in a relationship where the following occur: I choose not to answer THRIVE Score: 1 AUDIT C Alcohol Use Questionnaire (AUDIT-C) 1. How often do you have a drink containing alcohol?: Never 3. How often do you have six or more drinks on one occasion?: Never Total Score: 0 Score Reviewed/Action Taken: Yes YONIS-7 AMB Questionnaire YONIS-7 Date YONIS - 7 assessed: 05/14/25 Feeling nervous, anxious, or on edge: 1 = Several days Not being able to stop or control worryin = Not at all Worrying too much about different things: 1 = Several days Trouble relaxin = Several days Being so restless that it is hard to sit still: 0 = Not at all Becoming easily annoyed or irritable: 0 = Not at all Feeling afraid as if something awful might happen: 1 = Several days Total YONIS-7 score (0-4 normal; 5-9 mild; 10-14 moderate; 15-21 severe): 4 Source: Developed by Drs. Joe Trotter, Lita Diallo, Eliceo Wu and colleagues, with an educational brenda from [employer]. Review of Systems Const Denies chills, Denies fatigue, Denies fever(s), Denies headache(s) and Denies malaise Eyes Denies blurry vision, Denies change in vision, Denies irritation and Denies itchy eyes ENT Denies dysphagia, Denies dizziness, Denies otalgia, Denies headache(s), Denies nasal congestion, Denies neck pain, Denies odynophagia, Denies sinus pain and Denies sore throat Card Denies chest pain, Denies rapid heart rate, Denies irregular heart rhythm, Denies palpitations and Denies dyspnea Resp Denies chest congestion, Denies cough, Denies dyspnea and Denies wheezing GI Denies abdominal pain, Denies bloating, Denies constipation, Denies dysphagia, Denies heartburn, Denies diarrhea, Denies nausea, Denies odynophagia and Denies vomiting Denies hematuria, Denies urinary frequency, Denies dysuria, Denies urinary incontinence and Denies urinary urgency Musc Denies back pain, Denies arthralgias, Denies joint swelling, Denies muscle weakness and Denies neck pain Skin/Breast Denies breast pain, Denies breast mass, Denies change in pigmentation, Denies lesions, Reports rash (on and off scattered rash that she states are itchy sometimes) and Denies unusual bruising Neuro Denies dizziness, Denies headache(s), Reports memory loss (still has some lapses in memory from her concussion over past few months) and Denies paresthesias Psych Denies anxiety, Denies depression and Reports memory loss (still has some lapses in memory from her concussion over past few months) Endo Details: c/o frequent hot flashes and menopausal symptoms Denies fatigue and Denies palpitations Kyle/Lymph Denies easy bruising Aller/Immun Denies itchy eyes and Denies wheezing Physical exam (Primary Care) Vital Signs: Last Vital Signs Pulse 65 05/14/25 10:59 BP 152/84 H 05/14/25 10:59 Pulse Ox 98 05/14/25 10:59 Oxygen Delivery Method Room Air 05/14/25 10:59 BMI result Body Mass Index 28.0 Tobacco/Smoking Status: Tobacco use Status Tobacco use date assessed 05/14/25 05/14/25 11:05 Patient Tobacco Use Status Never used Tobacco 05/14/25 11:05 e-Cigarette/Vaping Use Never Used 05/14/25 11:05 PHQ-9: PHQ-9 Score PHQ-9: Total score 6 05/14/25 13:14 Depression Screening Interpretation: Positive Depression Screening Follow-up: Existing condition and In treatment Thrive Assessment: Date of Thrive Assessment Date Thrive assessed 05/14/25 05/14/25 11:05 Currently or been in a relationship where the following occur: I choose not to answer Const General: no acute distress, alert and awake Orientation/consciousness: patient oriented x3 HENMT Head: Yes normocephalic and Yes atraumatic Ears: external ears normal, TM's normal bilaterally and EAC's normal General nose exam: No nasal discharge present Face and sinus: Yes normal facial exam and Yes sinuses nontender Teeth and gingiva: dentition normal Throat: Yes posterior oropharynx normal and Yes tonsils normal (no TP congestion) Eyes Eyelids: Yes eyelids normal Conjunctivae: conjunctivae normal Pupils: Equal, round and reactive pupils present EOM: EOMs intact bilaterally Neck Neck: Yes no lymphadenopathy and Yes supple Thyroid: Thyroid normal Resp Auscultation: clear to auscultation bilaterally, no rales and no wheezes Cardio Rate: regular rate Rhythm: regular rhythm Heart sounds: no murmurs GI Palpation (GI): Soft to palpation, nontender and No hepatosplenomegaly present Auscultation: normal bowel sounds General: Yes no CVA tenderness Back/Spine/Pelvis Back: no CVA tenderness Thoracic/Lumbar Spine: thoracic and lumbar spine normal to inspection Skin Other: (+) scattered patchy erythematous rash, including over the face, neck and arms Lesions: no lesions Neuro General: patient oriented x3, moves all extremities, no focal motor deficits and CN's II-XI intact bilaterally Cranial nerves: Yes Equal, round and reactive pupils present Cognition (Neuro): normal cognition Gait exam (Neuro): Normal gait present Extrem General: Yes no clubbing, cyanosis or edema Coding Level of Care Code Est Pt Prev Care 40-64y(50002) Diagnoses Annual physical exam Z00.00 Pure hypercholesterolemia E78.00 Essential hypertension I10 Elevated LFTs R79.89 Vitamin D deficiency E55.9 Constipation, unspecified constipation type K59.00 Constipation type: unspecified constipation type Trigeminal neuralgia of right side of face G50.0 Menopausal symptoms N95.1 Rash R21 Other insomnia G47.09 Insomnia type: other insomnia Anxiety F41.9 Overweight (BMI 25.0-29.9) E66.3 Additional Codes PHQ-9 - 69941 - PHQ-9 Billing: Yes ([id number]) Assessment & Plan Assessment & Plan (1) Annual physical exam: Code(s): Z00.00 - Encounter for general adult medical examination without abnormal findings Category: Medical Plan: Check labs IQRA to complete her annual exam Her annual mammogram was last done back on 03/29/2025 - mammogram came out normal Her last pap smear and insecticide mixer exam was done a couple of years ago on 05/27/2023 - pap was negative; patient needs to schedule her yearly gynecology follow up exam IQRA Her screening colonoscopy was last done on 01/29/[address] Nam - (+) TA and recommend repeat colonoscopy in 5 years (2026) (2) Pure hypercholesterolemia: Code(s): E78.00 - Pure hypercholesterolemia, unspecified Category: Medical Plan: Will have patient recheck her fasting lipids IQRA for follow up Reinforced low cholesterol diet She could not tolerate Atorvastatin (10 mg QD) when it was prescribed for her last year and we then switched her over to Pravastatin, which she has been tolerating Continue Pravastatin 20 mg QD Will have her recheck her labs and fasting lipids again in 6 months for follow up (3) Essential hypertension: Code(s): I10 - Essential (primary) hypertension Category: Medical Plan: Reinforced low sodium diet - goal is systolic BP of at least 130 mm or less Continue Lisinopril 2.5 mg QD Patient is reminded to continue monitoring her blood pressure regularly (4) Elevated LFTs: Code(s): R79.89 - Other specified abnormal findings of blood chemistry Category: Medical Plan: Her serum ALT was still slightly elevated on her most recent labs done back in March 2024; AST was normal This again is most likely related to her weight Abdominal US done in the past, most recently in 2018, revealed (+) fatty infiltration of the liver Will recheck her LFTs for follow up (5) Vitamin D deficiency: Code(s): E55.9 - Vitamin D deficiency, unspecified Category: Medical Plan: Continue Vitamin D3 1000 units QD Will recheck her Vitamin D level for follow up (6) Constipation: Code(s): K59.00 - Constipation, unspecified Category: Medical Qualifiers: Constipation type: unspecified constipation type Qualified Code(s): K59.00 - Constipation, unspecified Plan: Patient is encouraged again on increased oral fluids and dietary fiber intake She states that her bowel movements have improved significantly with OTC fiber supplements (7) Trigeminal neuralgia of right side of face: Code(s): G50.0 - Trigeminal neuralgia Category: Medical Plan: Continue Gabapentin 100 mg Q HS She was seen by neurosurgery (Dr. Hook) last May 2024 and sent for MRI of the head for further evaluation, which reportedly came back normal As her symptoms appear to have subsided with oral Gabapentin at the time, was advised to just continue on her Rx for now and to reach out to neurosurgery again if her symptoms get worse and are no longer responding to oral treatments (8) Menopausal symptoms: Code(s): N95.1 - Menopausal and female climacteric states Category: Medical Plan: Have advised patient that unless her symptoms are so severe that she is not able to function, we currently no longer recommend hormone replacement therapy for menopausals symptoms Have advised her that the SSRIs and other antidepressants sometimes help with menopausal symptoms and have offered to raise the dose of her Escitalopram but patient declined and would like to stay on her current 5 mg dose for now Advised that she can try some of the more common OTC supplements like Estroven and Black Cohosh to see if they will help or not and that as these are supplements, there are no guarantees that they will help (9) Rash: Code(s): R21 - Rash and other nonspecific skin eruption Category: Medical Plan: Her rash are likely miliaria due to her increased sweating and menopausal symptoms lately, or may be related to her anxiety (hives) She is advised that she can try taking OTC Benadryl or Claritin PRN to see if these will help with her rash She is advised to call if her rash persists or gets worse despite the aforementioned OTC meds (10) Insomnia: Code(s): G47.00 - Insomnia, unspecified Category: Medical Qualifiers: Insomnia type: other insomnia Qualified Code(s): G47.09 - Other insomnia Plan: Sleep hygiene reinforced Continue OTC Melatonin 10 mg Q HS PRN (11) Anxiety: Code(s): F41.9 - Anxiety disorder, unspecified Category: Medical Plan: Continue Escitalopram 5 mg QD and Doxepin 3 mg 1 to 2 tablets Q HS PRN (12) Overweight (BMI 25.0-29.9): Code(s): E66.3 - Overweight Category: Medical Plan: Reinforced diet/exercise as tolerated/lose weight Plan Follow up in 6 months Orders: Orders Lipid Panel 05/14/25 E78.00 - Pure hypercholesterolemia, unspecified, Z00.00 - Encounter for general adult medical examination without abnormal findings Hemoglobin A1c 05/14/25 R73.9 - Hyperglycemia, unspecified, Z00.00 - Encounter for general adult medical examination without abnormal findings Comprehensive [place]. Panel Fast 6 Months E78.00 - Pure hypercholesterolemia, unspecified Lipid Panel 6 Months E78.00 - Pure hypercholesterolemia, unspecified Complete Blood Count Auto Diff 05/14/25 D64.9 - Anemia, unspecified, Z00.00 - Encounter for general adult medical examination without abnormal findings Comprehensive [place]. Panel Fast 05/14/25 E78.00 - Pure hypercholesterolemia, unspecified, Z00.00 - Encounter for general adult medical examination without abnormal findings TSH reflex Free T4 05/14/25 E78.00 - Pure hypercholesterolemia, unspecified, Z00.00 - Encounter for general adult medical examination without abnormal findings UA CC w/rflx Micro + Cult 05/14/25 R30.0 - Dysuria, Z00.00 - Encounter for general adult medical examination without abnormal findings Vitamin B12 and Folate 05/14/25 E53.8 - Deficiency of other specified B group vitamins, Z00.00 - Encounter for general adult medical examination without abnormal findings Vitamin D 25-OH Total 05/14/25 E55.9 - Vitamin D deficiency, unspecified, Z00.00 - Encounter for general adult medical examination without abnormal findings
== END 2025-05-14 12:07 | disposition home or self-care (01) ==
LOC: HO.HMCH 10:51
PROVIDERS: PCP Internal Medicine; Visit Provider Internal Medicine
DX: Z00.00 Encounter for general adult medical examination without abnormal findings (principal); E78.00 Pure hypercholesterolemia, unspecified; I10 Essential (primary) hypertension; R79.89 Other specified abnormal findings of blood chemistry; E55.9 Vitamin D deficiency, unspecified; K59.00 Constipation, unspecified; G50.0 Trigeminal neuralgia; N95.1 Menopausal and female climacteric states; R21 Rash and other nonspecific skin eruption; G47.09 Other insomnia; F41.9 Anxiety disorder, unspecified; E66.3 Overweight

== ENCOUNTER → 2025-05-14 10:50 | Outpatient (BNVA) | payer OTHER, SELFPAY | PROVIDERS: PCP Internal Medicine; Visit Provider Internal Medicine | DX: Z00.00 Encounter for general adult medical examination without abnormal findings (principal); E78.00 Pure hypercholesterolemia, unspecified; I10 Essential (primary) hypertension; R79.89 Other specified abnormal findings of blood chemistry; E55.9 Vitamin D deficiency, unspecified; K59.00 Constipation, unspecified; G50.0 Trigeminal neuralgia; N95.1 Menopausal and female climacteric states; R21 Rash and other nonspecific skin eruption; F41.9 Anxiety disorder, unspecified; G47.09 Other insomnia; E66.3 Overweight; Z68.28 Body mass index [BMI] 28.0-28.9, adult | CPT/HCPCS: 96127 ==

== ENCOUNTER 2025-05-15 08:40 | Outpatient (REF) | payer OTHER, SELFPAY ==
[2025-05-15 09:04] LABS: MANUAL DIFF FLAG NO
[2025-05-15 09:37] LABS: Hematocrit 38.4 % (37.0-47.0); Hemoglobin 13.1 g/dl (12.0-16.0); Imm Gran Abs Auto 0.02 X10*3/uL (0.00-0.03); Imm Gran Pct Auto 0.4 % (0.0-0.4); Lymphocytes Absolute Auto 1.3 X10*3/uL (1.2-4.9); Mean Corpuscular HGB Conc 34.1 g/dl (31.0-35.0); Mean Corpuscular Hemoglobin 30.8 pg (27.0-33.0); Mean Corpuscular Volume 90.1 fL (80.0-98.0); NRBC Abs Auto 0.000 X10*3/uL (0.0-0.012); NRBC Pct Auto 0.0 /100WBC (0.0-0.2); Platelet Count 226 X10*3/uL (160-400); Red Blood Count 4.26 X10*6/uL (4.20-5.50); White Blood Count 4.6 X10*3/uL (4.8-10.8)
[2025-05-15 09:52] LABS: Appearance Urine Clear; Glucose Urine UA Negative (Negative); PH 5.5 (5.0-9.0); Specific Gravity - Urine 1.015 (1.005-1.025); UMIC TRIGGER UACC YES
[2025-05-15 10:13] LABS: Alanine Aminotransferase 47 U/L (0-31); Albumin Level 4.3 g/dL (3.5-5.0); Alkaline Phosphatase 90 U/L (39-117); Anion Gap 13 (12-20); Aspartate Amino Transferase 30 U/L (5-31); Blood Urea Nitrogen 16 mg/dL (9-16); Calcium 9.2 mg/dL (8.4-10.2); Carbon Dioxide 26 mmol/L (22-29); Chloride 107 mmol/L (96-108); Cholesterol 246 mg/dL (<200); Estimated Glomerular Filt Rate 56; HDL Cholesterol 59 mg/dL (>40); Potassium 4.3 mmol/L (3.3-5.1); Sodium 142 mmol/L (135-145); Total Protein 7.4 g/dL (6.5-8.0); Triglycerides 87 mg/dL (<150)
[2025-05-15 10:34] LABS: Folate 15.8 ng/mL (> or = 4.0); Vitamin B12 1350 pg/mL (200-900)
[2025-05-15 11:24] LABS: Hemoglobin A1C 135.6577 umol/L; Total Hemoglobin (HGBA1C) 3371.5642 umol/L
== END 2025-05-15 08:41 | disposition home or self-care (01) ==
LOC: HO.LAB 08:40
PROVIDERS: PCP Internal Medicine; Visit Provider Internal Medicine
DX: Z00.00 Encounter for general adult medical examination without abnormal findings (principal); E53.8 Deficiency of other specified B group vitamins; E78.00 Pure hypercholesterolemia, unspecified; E55.9 Vitamin D deficiency, unspecified; D64.9 Anemia, unspecified; R73.9 Hyperglycemia, unspecified
CPT/HCPCS: 36415; 80053; 80061; 81001; 82306; 82607; 82746; 83036; 84443; 85025

== ENCOUNTER 2025-05-26 11:14 | Outpatient (AMB) | payer OTHER, SELFPAY ==
[2025-05-26 11:16] VITALS: BP 148/94; PULSE 72; TEMP 36.1; O2SAT 98; BMI 28.0
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
== END 2025-05-26 12:07 | disposition home or self-care (01) ==
PROVIDERS: PCP Internal Medicine; Visit Provider Internal Medicine
DX: R41.3 Other amnesia (principal); G50.0 Trigeminal neuralgia; S06.0X9S Concussion with loss of consciousness of unspecified duration, sequela; Z04.3 Encounter for examination and observation following other accident; V89.2XXS Person injured in unspecified motor-vehicle accident, traffic, sequela; S16.1XXS Strain of muscle, fascia and tendon at neck level, sequela; S29.019S Strain of muscle and tendon of unspecified wall of thorax, sequela; S39.012S Strain of muscle, fascia and tendon of lower back, sequela; F43.10 Post-traumatic stress disorder, unspecified; F41.9 Anxiety disorder, unspecified; G47.09 Other insomnia

== ENCOUNTER → 2025-05-26 11:14 | Outpatient (BNVA) | payer OTHER, SELFPAY | PROVIDERS: PCP Internal Medicine; Visit Provider Internal Medicine | DX: G25.0 Essential tremor (principal); S06.0X9S Concussion with loss of consciousness of unspecified duration, sequela; S39.012S Strain of muscle, fascia and tendon of lower back, sequela; S29.019S Strain of muscle and tendon of unspecified wall of thorax, sequela; S16.1XXS Strain of muscle, fascia and tendon at neck level, sequela; R41.3 Other amnesia; F43.10 Post-traumatic stress disorder, unspecified; F41.9 Anxiety disorder, unspecified; G47.09 Other insomnia; V89.2XXS Person injured in unspecified motor-vehicle accident, traffic, sequela | CPT/HCPCS: 96127 ==